=== PATIENT | female | born 1970 | race Two or more races ===

== ENCOUNTER 2023-02-02 15:57 | Inpatient (IN) ==
--- NOTE | 2023-02-02 17:24 | EKG ---
Test Reason : ischemia left leg Blood Pressure : */* mmHG Vent. Rate : 94 BPM Atrial Rate : 101 BPM P-R Int : * ms QRS Dur : 172 ms QT Int : 446 ms P-R-T Axes : * -62 93 degrees QTc Int : 557 ms Sinus tachycardia with complete heart block and Ventricular-paced rhythm Abnormal ECG Confirmed by Deejay Mcdonough ([id number]) on 02/05/2023 12:51:53 PM Referred By: Confirmed By: Deejay Mcdonough
[2023-02-02 17:53] VITALS: BMI 27.8
[2023-02-02 18:17] LABS: BASOPHILS % (AUTO) 0.5 % (0.2-1.0); EOSINOPHILS % (AUTO) 0.5 % (0.9-2.9); HEMATOCRIT 34.2 % (36.0-47.0); HEMOGLOBIN 11.8 g/dL (12.0-16.0); LYMPHOCYTES % (AUTO) 32.1 % (21.0-51.0); MEAN CORPUSCULAR HEMOGLOBIN 28.3 pg (27.0-34.0); MEAN CORPUSCULAR HGB CONC 34.5 g/dL (33.0-35.0); MEAN CORPUSCULAR VOLUME 82.2 fL (80.0-100.0); MONOCYTES # (AUTO) 0.4 x10^3/uL (0.3-0.8); MONOCYTES % (AUTO) 5.8 % (0.0-13.0); NEUTROPHILS # (AUTO) 3.9 x10^3/uL (2.2-4.8); NEUTROPHILS % (AUTO) 61.1 % (42.0-75.0); PLATELET COUNT 208 X10^3/uL (150.0-450.0); RED BLOOD COUNT 4.16 X10^6/uL (3.5-5.4); RED CELL DISTRIBUTION WIDTH 14.5 % (11.6-16.5); WHITE BLOOD COUNT 6.4 X10^3/uL (3.6-10.0)
[2023-02-02] MEDS ORDERED: HEPARIN SODIUM INJ 5000 UNITS IVP ONE (18:21)
[2023-02-02 18:31] LABS: ALANINE AMINOTRANSFERASE 35 Units/L (12-78); ALBUMIN 3.5 g/dL (3.4-5.0); ALKALINE PHOSPHATASE 146 Units/L (46-116); ASPARTATE AMINO TRANSFERASE 17 Units/L (15-37); BLOOD UREA NITROGEN 15 mg/dL (7-18); CALCIUM 8.9 mg/dL (8.5-10.1); CARBON DIOXIDE 28.2 mmol/L (21-32); CHLORIDE 101 mmol/L (98-107); COR NA(FOR HYPERGLY) 144 mmol/L (136-145); CREATININE 1.06 mg/dL (0.55-1.02); GLUCOSE 395 mg/dL (65-99); SODIUM 137 mmol/L (136-145); TOTAL PROTEIN 7.4 g/dL (6.4-8.2); eGFR NON BLACK RACES 58 (>60)
[2023-02-02] MEDS: HEPARIN SODIUM IN D5W 25,000 UNITS/500 ML BAG IV PRN (18:48)
[2023-02-02] MEDS: LR 1,000 ML IV 1,000 ML IV SCH (18:51)
[2023-02-02] MEDS: NORVASC TAB 5 MG PO SCH (21:00)
[2023-02-02] MEDS: AMARYL TAB 4 MG PO SCH (21:00)
[2023-02-02] MEDS: ELAVIL PO SCH (21:00)
[2023-02-02] MEDS: SNACK - Diabetic Appropriate PO SCH (21:01)
[2023-02-03] MEDS ORDERED: HEPARIN SODIUM INJ 5000 UNITS IVP ONE ×2 (00:46→11:00)
[2023-02-03] MEDS ORDERED: NS 100 ML IV 100 ML ONE (06:34)
[2023-02-03] MEDS ORDERED: OMNIPAQUE 350 mg/mL 50 mL BTL 50 ML ONE (06:34)
[2023-02-03] MEDS ORDERED: OMNIPAQUE 350 mg/mL 100 mL BTL 100 ML ONE (06:34)
[2023-02-03] MEDS: LR 1,000 ML IV 1,000 ML IV SCH ×2 (08:00→21:25)
--- NOTE | 2023-02-03 14:36 | CT ---
HISTORYischemia left legSTUDYCTA AORTA WITH RUNOFFCOMPARISONNoneTECHNIQUECTA of the abdomen and pelvis with bilateral lower extremity runoff obtained without and with IV contrast. 3D MIPS images obtained and reviewed. Dose reduction techniques including Automated Exposure Control (AEC) and adjustment of mA and kV were utilized.FINDINGSVisualized portions of the lower thorax demonstrate no acute process. Partially visualized pacer wires.No acute osseous abnormality. No acute soft tissue abnormality in either lower extremity.No evidence of aortic aneurysm or dissection. The celiac artery, SMA, bilateral renal arteries, and JEFF appear patent with multifocal atherosclerotic disease. The bilateral common, internal, and external iliac arteries appear patent with multifocal atherosclerotic disease.The right common femoral, superficial femoral, and deep femoral arteries are patent with multifocal atherosclerotic disease. The right anterior tibial artery appears patent to the right foot. The posterior tibial and peroneal artery on the right are difficult to evaluate due to degree of atherosclerotic calcification and may be occluded.The left common femoral, superficial femoral, and deep femoral arteries appear patent with multifocal atherosclerotic disease. The left popliteal artery is patent. The left anterior tibial and peroneal arteries appear patent to the foot. Occlusion of the left posterior tibial artery.The liver, gallbladder, spleen, pancreas, bilateral adrenal glands, and right kidney demonstrate no acute process. Possible striated left nephrogram.No evidence of bowel obstruction. The appendix is unremarkable. Moderate colonic stool.The bladder is unremarkable. No free air or fluid.IMPRESSIONPatent one-vessel runoff to the right foot and 2 vessel runoff to the left foot.No acute findingsElectronically signed by: WILLIAMS CHIN (Feb 03, 2023 14:35:20)
[2023-02-03] MEDS ORDERED: NovoLIN R (or HumuLIN R) SUBCUT PRN (16:22)
[2023-02-03] MEDS ORDERED: SNACK - Diabetic Appropriate PO SCH (20:00)
[2023-02-03] MEDS: SNACK - Diabetic Appropriate PO SCH (21:00)
[2023-02-03] MEDS: AMARYL TAB 4 MG PO SCH (21:23)
[2023-02-03] MEDS: NORVASC TAB 5 MG PO SCH (21:23)
[2023-02-03] MEDS: ELAVIL PO SCH (21:25)
--- NOTE | 2023-02-03 23:31 | NOTE.SOAP ---
Soap Note Note for Day of Date of Exam: 02/03/23 Subjective Data Subjective Data: Patient is stable on Heparin drip. Still complaining of numbness of the left leg. Left foot cool with rubor on the lateral aspect of the fifth metatarsal head .CT angiogram shows no obvious proximal disease with completely occluded left posterior tibial artery. The findings of the CT angiogram do not correspond with her history and physical exam, therefore we will plan onTable arteriogram and intervention as necessary. Objective Data Temperature: 97.4 F Pulse Rate: 73 Respiratory Rate: 15 Blood Pressure: 158/70 O2 Sat by Pulse Oximetry: 100 Objective Data: exam as above. PTT equals 64.3, creaTININE equals 1.06 Assessment Assessment: Critical ischemia left leg. CT angiogram does not correspond to history and physical exam Plan Plan: on table arteriogram left leg. Arterial intervention left leg as necessary
[2023-02-04] MEDS: HEPARIN SODIUM IN D5W 25,000 UNITS/500 ML BAG IV PRN (02:07)
[2023-02-04] MEDS ORDERED: MARCAINE 0.5% ONE (07:49)
[2023-02-04] MEDS ORDERED: HEPARIN SODIUM IN D5W 75,000 UNITS/1,500 ML BAG ONE (07:49)
[2023-02-04] MEDS ORDERED: NS 100 ML IV 100 ML ONE (08:16)
[2023-02-04] MEDS ORDERED: ANCEF VIAL 1 GRAM ONE (08:16)
[2023-02-04] MEDS ORDERED: NS 1,000 ML IV 1,000 ML ONE (08:16)
[2023-02-04] MEDS ORDERED: DIPRIVAN VIAL 40 ML ONE (08:21)
[2023-02-04] MEDS ORDERED: VERSED ONE (08:23)
[2023-02-04] MEDS ORDERED: HEPARIN SODIUM INJ 5000 UNITS ONE (08:34)
[2023-02-04] MEDS ORDERED: VISIPAQUE 100 ML ONE (08:36)
[2023-02-04] MEDS ORDERED: NORCO 5/325 MG TAB PO PRN ×2 (10:04→10:05)
--- NOTE | 2023-02-04 10:05 | OR.IMMED ---
IMMEDIATE POST-OP NOTE Immediate Post-Op Note Pre-Op Diagnosis: Critical ischemia left leg with rubor and tissue loss over the great toe Post-Op Diagnosis: same Procedure: diagnostic aorta gram, diagnostic arteriogram left leg ,angioplasty left anterior tibial artery complete occlusion distally Description of Procedure: dictated Surgeon/Cable Respooler: HARMONY Findings: very small aorta and iliac arteries. Small superficial femoral artery, completely occluded left peroneal and left posterior tibial arteries ,complete occlusion of the distal left anterior tibial artery with reconstruction and flow into the foot Estimated Blood Loss: 50 cc's Progress Notes: will return patient to the ICU. Discontinue Heparin drip. If tolerated diet will discharge home later today
[2023-02-04] MEDS: LR 1,000 ML IV 1,000 ML IV SCH ×2 (10:35→13:42)
--- NOTE | 2023-02-04 12:26 | DR.UPDATE ---
H&P UPDATE Review Yes Any changes to H&P?: No
[2023-02-04] MEDS ORDERED: ZOFRAN INJ 4 MG VIAL IVP PRN (13:23)
--- NOTE | 2023-02-04 14:42 | DR.OPNOTE ---
OP NOTE Pre-Op Diagnosis: Critical ischemia left leg with rubor and non-healing wounds to the left gr Post-Op Diagnosis: same Procedure Date Date Of Procedure: 02/04/23 Procedure: PROCEDURE: DIAGNOSTIC AORTOGRAM, DIAGNOSTIC ARTERIOGRAM LEFT LEG NARRATIVE : The patient was taken to the operative suite and place in the supine position. The right groin and entire left leg were prepped and draped in sterile fashion. The patient was given intravenous sedation supervised by myself. Time out for the procedure obtained. Ultrasound used to identify the right femoral artery and the skin overlying it infiltrated with 0.5% Marcaine. Ultrasound then used to guide puncture of the right femoral artery and a 0.012 inch guide wire was placed. Incision made over the guide wire at the skin edge with a # 11 knife blade and a micro sheath placed over the guide wire into the right femoral artery The small guidewire exchanged for a 0.035 inch Advantage glide wire and the micro sheath exchanged for a 5 Fr vascular sheath Patient given 5000 units of intravenous heparin. Omni catheter was placed over the guide wire into the aorta and diagnostic aortogram carried out with the power injector showing Very small aortic and iliac arteries but there appeared to be no significant obstruction . Omni catheter was used to steer the guide wire down the left common iliac artery to the distal left external iliac artery . Omni catheter was exchanged for a [place] catheter and sequential arteriograms carried out of the left lower extremity showing a completely occluded left peroneal and occluded left posterior tibial arteries with no reconstitution of either .The anterior tibial artery had a 5 mm area of complete total occlusion in the distal aspect with reconstitution of flow beyond this and into the foot. The 5 Fr sheath in the left groin exchanged for a 7 Fr destination sheath which was parked in Distal left superficial femoral artery . [place] catheter and the guide wire were used to traverse the arteries of the right leg ultimately ending in the left anterior tibial artery, beyond the obstruction and into the left foot. artery . This was selective catheterization. 0.035 inch wire removed and exchanged for a 0.014 inch wire. Over this wire we placed a [employer] [place] balloon , measuring 1mmx 150 mm and balloon dilated the complete obstruction if the distal left anterior tibial artery . At the completion of this a follow up arteriogram showed arterial flow through the entire left foot and most importantly into the left great toe . All wires and devices removed. The 7 Fr sheath was pulled back into the aorta and a 0.035 inch wire placed. The destination sheath exchanged for an Angioseal device used to close the puncture of the right femoral artery. .Dressing applied to the left groin. The patient taken to same day surgery in good condition. Type of Anesthesia: Local (0.5% marcaine ) Anesthesia Comment: plus MAC Findings: very small vessels. Normal aorta and normal iliac arteries, normal left superficial femoral artery and left popliteal artery ,completely occluded left peroneal artery and completely occluded left posterior tibial , complete total occlusion of 5 mm area of distal left anterior tibial artery with reconstitution and filling of the foot Type of Fluids Used:: Lactated Ringers Total Amount of Fluid Infused:: 750 cc EBL: < 50 cc Complications:: none Needle/Sponge Count:: correct Disposition/Condition: Pt. tolerated procedure without difficulty. Taken back to the ICU in stable condition.
[2023-02-04 15:39] VITALS: BP 159/71; PULSE 89; RESP 19; TEMP 98.2; O2SAT 97
[2023-02-04] MEDS ORDERED: KETAMINE 50 MG/5 ML-NACL SYRNG ONE (16:45)
[2023-02-04] MEDS ORDERED: XYLOCAINE 2 % (PLAIN) ONE (16:45)
--- NOTE | 2023-02-12 11:16 | W.DIS.FURT ---
Summary of Discharge Discharge Summary of Date Date of Exam: 02/05/23 Admission Date Date of Admission: 02/02/23 Admission Diagnosis Hospital Course: This 53 year old female with history of diabetes presented with complaints of a numb left leg. I could not palpate pulse nor hear any flow by ultrasound of the arteries of the left foot She was admitted 02/02/2023 and placed on a Heparin drip and CT angiogram carried out showing completely occluded right peroneal and right posterior tibial arteries without reconstitution. They did not comment on the Any significant disease of the left anterior tibial artery . Because the clinical findings were not consistent with the CT scan she was taking to the operating Suite on February 04 where on table arteriogram confirmed complete occlusion of both the right posterior tibial and right peroneal artery with reconstitution. The left anterior tibial artery was very small with complete occlusion of a 5 mm area distally with reconstitution of the foot. She underwent angioplasty of this left anterior tibial artery and is doing well. She will be discharged home on her usual medications plus aspirin 81 mg by mouth daily. I will follow her up in one week. Labs: Laboratory Last Values WBC 6.4 X10^3/uL (3.6-10.0) 02/02/23 17:55 RBC 4.16 X10^6/uL (3.5-5.4) 02/02/23 17:55 Hgb 11.8 g/dL (12.0-16.0) L 02/02/23 17:55 Hct 34.2 % (36.0-47.0) L 02/02/23 17:55 MCV 82.2 fL (80.0-100.0) 02/02/23 17:55 MCH 28.3 pg (27.0-34.0) 02/02/23 17:55 MCHC 34.5 g/dL (33.0-35.0) 02/02/23 17:55 RDW 14.5 % (11.6-16.5) 02/02/23 17:55 Plt Count 208 X10^3/uL (150.0-450.0) 02/02/23 17:55 MPV 9.0 fL (7.4-11.0) 02/02/23 17:55 Neut % (Auto) 61.1 % (42.0-75.0) 02/02/23 17:55 Lymph % (Auto) 32.1 % (21.0-51.0) 02/02/23 17:55 [place] % (Auto) 5.8 % (0.0-13.0) 02/02/23 17:55 Eos % (Auto) 0.5 % (0.9-2.9) L 02/02/23 17:55 Baso % (Auto) 0.5 % (0.2-1.0) 02/02/23 17:55 Neut # (Auto) 3.9 x10^3/uL (2.2-4.8) 02/02/23 17:55 Lymph # (Auto) 2.0 X10^3/uL (1.3-2.9) 02/02/23 17:55 [place] # (Auto) 0.4 x10^3/uL (0.3-0.8) 02/02/23 17:55 Eos # (Auto) 0.0 x10^3/uL (0.0-0.2) 02/02/23 17:55 Baso # (Auto) 0.0 X10^3/uL (0.0-0.1) 02/02/23 17:55 Absolute Nucleated RBC 0.0 /100WBC 02/02/23 17:55 PT 13.0 SECONDS (11.8-14.3) 02/02/23 17:55 INR Target Range - 02/02/23 17:55 INR 1.00 (0.8-1.3) 02/02/23 17:55 APTT > 293.0 SECONDS (22.9-36.5) H* 02/04/23 10:28 PTT Comment - 02/04/23 10:28 Sodium 137 mmol/L (136-145) 02/02/23 17:55 Corrected Sodium 144 mmol/L (136-145) 02/02/23 17:55 Potassium 4.0 mmol/L (3.5-5.1) 02/02/23 17:55 Chloride 101 mmol/L (98-107) 02/02/23 17:55 Carbon Dioxide 28.2 mmol/L (21-32) 02/02/23 17:55 BUN 15 mg/dL (7-18) 02/02/23 17:55 Creatinine 1.06 mg/dL (0.55-1.02) H 02/02/23 17:55 Est GFR (MDRD) Af Amer > 60 (>60) 02/02/23 17:55 Est GFR (MDRD) Non-Af 58 (>60) L 02/02/23 17:55 Glucose 395 mg/dL (65-99) H 02/02/23 17:55 POC Glucose (mg/dL) 141 mg/dL (65-99) H 02/04/23 11:30 Calcium 8.9 mg/dL (8.5-10.1) 02/02/23 17:55 Corrected Calcium TNP 02/02/23 17:55 Total Bilirubin 0.40 mg/dL (0.2-1.0) 02/02/23 17:55 AST 17 Units/L (15-37) 02/02/23 17:55 ALT 35 Units/L (12-78) 02/02/23 17:55 Alkaline Phosphatase 146 Units/L (46-116) H 02/02/23 17:55 Total Protein 7.4 g/dL (6.4-8.2) 02/02/23 17:55 Albumin 3.5 g/dL (3.4-5.0) 02/02/23 17:55 Globulin 3.9 g/dL (2.5-4.5) 02/02/23 17:55 Albumin/Globulin Ratio 0.9 Ratio (1.1-2.1) L 02/02/23 17:55 Reason For Visit: CRITICAL ISCHEMIA LEFT LEG Discharge Date Discharge Date: 02/05/23 Discharge Diagnosis All Active Problems (Updated 02/04/23 @ 15:34 by Santo Hawley) Atherosclerosis of [place] arteries of extremities with rest pain, left leg (Acute) Plan of Treatment: Continue with present treatment and follow up plan. Pt is to keep follow up appointment as instructed and take medications as ordered. Discharge Medications Discharge Medications: No Known Allergies Allergy (Verified 02/02/23 17:53) CONTINUE taking the following medications amitriptyline-chlordiazepoxide 25 mg-10 mg tablet 10 tab PO HS 02/02/23 [History] amlodipine 5 mg tablet 5 mg PO HS 02/02/23 [History] glimepiride 4 mg tablet 4 mg PO HS 02/02/23 [History] New Prescriptions aspirin 81 mg capsule 81 mg PO QDAY #30 caps 02/04/23 [Rx] Discharge Disposition Assessment: as above Discharge Plan Discharge Plan Hospital Course: This 53 year old female with history of diabetes presented with complaints of a numb left leg. I could not palpate pulse nor hear any flow by ultrasound of the arteries of the left foot She was admitted 02/02/2023 and placed on a Heparin drip and CT angiogram carried out showing completely occluded right peroneal and right posterior tibial arteries without reconstitution. They did not comment on the Any significant disease of the left anterior tibial artery . Because the clinical findings were not consistent with the CT scan she was taking to the operating Suite on February 04 where on table arteriogram confirmed complete occlusion of both the right posterior tibial and right peroneal artery with reconstitution. The left anterior tibial artery was very small with complete occlusion of a 5 mm area distally with reconstitution of the foot. She underwent angioplasty of this left anterior tibial artery and is doing well. She will be discharged home on her usual medications plus aspirin 81 mg by mouth daily. I will follow her up in one week. Patient Disposition: HOME, SELF-CARE Condition: Stable Health Concerns: Post Hospitalization: new medications and changes needed to prevent readmission or further decline. Pt educated and given instructions on all concerns. Care Plan Goals: Problem: Pain/Alteration in Comfort Goal: Improve/ Resolve Pain; Achieve Pain Tolerance Instructions: Take pain medications as prescribed. Contact your primary care provider if your pain is unrelieved or worsens. Follow up with primary care provider as directed. Plan of Treatment: Continue with present treatment and follow up plan. Pt is to keep follow up appointment as instructed and take medications as ordered. Assessment: as above Prescription drug monitoring program results: PDMP was not reviewed Prescriptions: New aspirin 81 mg capsule 81 mg PO QDAY MDD 1 Qty: 30 6RF Continued amlodipine 5 mg Tablet 5 mg PO HS amitriptyline-chlordiazepoxide 25-10 mg Tablet 10 tab PO HS glimepiride 4 mg Tablet 4 mg PO HS Follow ups/Referrals Follow ups/Referrals: MARCO ANTONIO PETERSON [Primary Care Provider] - (Follow up as needed.) Santo Hawley [STAFF PHYSICIAN] - 02/09/23 9:30 am Instructions Instructions: Coronary Angioplasty, Sutures, Elen, or Adhesive Wound Closure, Coronary Angiogram, Care After Stand Alone Forms: Excuse From Work or School, Post Hospital Follow Up Care
== END 2023-02-04 16:06 | disposition home or self-care (01) | DRG 254 ==
LOC: ICU 16:45
PROVIDERS: ADMIT Surgery; ATTEND Surgery
DX: E11.65 Type 2 diabetes mellitus with hyperglycemia; I70.222 Atherosclerosis of native arteries of extremities with rest pain, left leg; I10 Essential (primary) hypertension

== ENCOUNTER 2023-02-25 10:24 | Inpatient (IN) ==
[2023-02-25] MEDS ORDERED: MARCAINE 0.5% ONE (14:15)
[2023-02-25] MEDS ORDERED: HEPARIN SODIUM IN D5W 75,000 UNITS/1,500 ML BAG ONE (14:15)
[2023-02-25] MEDS ORDERED: NS 1,000 ML IV 1,000 ML ONE (14:24)
[2023-02-25] MEDS ORDERED: ANCEF VIAL 1 GRAM ONE (14:24)
[2023-02-25] MEDS ORDERED: NS 100 ML IV 100 ML ONE (14:25)
[2023-02-25] MEDS ORDERED: KETAMINE 50 MG/5 ML-NACL SYRNG ONE (14:42)
[2023-02-25] MEDS ORDERED: VERSED ONE (14:42)
[2023-02-25] MEDS ORDERED: HEPARIN SODIUM INJ 5000 UNITS ONE (14:42)
[2023-02-25] MEDS ORDERED: FENTANYL VIAL INJ 100 mcg ONE (14:42)
[2023-02-25] MEDS ORDERED: DIPRIVAN VIAL 20 ML ONE (14:42)
[2023-02-25] MEDS ORDERED: PROTAMINE SULFATE 50 MG VIAL ONE (14:43)
--- NOTE | 2023-02-25 15:08 | DR.H&P ---
H&P History & Physical for Day of: H&P Date: 02/25/23 Chief Complaint Chief Complaint: painful, cold right foot Allergies Allergies Allergy/AdvReac Type Severity Reaction Status Date / Time No Known Allergies Allergy Verified 02/25/23 11:21 History of Present Illness History of Present Illness: 53 year old female who is seen by me originally in Late January of this year for an ischemic left leg with rubor. On table arteriogram showed completely occluded left peroneal and left posterior tibial arteries with significant stenosis of the takeoff of the left anterior tibial artery which was ballooned open. The left leg did improve but she still has some pain. Presented today to the emergency room in [place], [place] complaining of severe pain in the right leg. Ultrasound studies and CT angiogram consistent with occluded right anterior and posterior tibial arteries. Past Medical History Past Medical History: Diabetes and Hypertension Past Surgical History Surgical History: Unknown (none) Family History Family Medical History: Diabetes Mellitus and Hypertension Social History Does any household member use tobacco: No Alcohol Use: None Drug Use: None Medications Home Medications: Home Medications Medication Instructions Recorded Confirmed Type amitriptyline-chlordiazepoxide 25 10 tab PO HS 02/02/23 02/25/23 History mg-10 mg tablet amlodipine 5 mg tablet 5 mg PO HS 02/02/23 02/25/23 History glimepiride 4 mg tablet 4 mg PO HS 02/02/23 02/25/23 History atorvastatin 20 mg tablet 20 mg PO DAILY 02/25/23 02/25/23 History metformin 500 mg 24 hr 100 mg PO BID 02/25/23 02/25/23 History tablet,extended release Labs Labs: Laboratory POC Glucose (mg/dL) 160 mg/dL (65-99) H 02/25/23 14:37 labs from [facility] unremarkable, Cr= 0.9, WBC =5.9, Hgb= 12.3, Eor=187, K= 4.4 Review of Systems Constitutional: See HPI Eyes: No Symptoms Reported ENT: No Symptoms Reported Respiratory: No Symptoms Reported Cardiovascular: No Symptoms Reported Gastrointestinal: No Symptoms Reported Genitourinary: No Symptoms Reported Musculoskeletal: No Symptoms Reported Skin: No Symptoms Reported Neurological: No Symptoms Reported Physical Exam Vital Signs: Vital Signs Pulse Rate 60 Pulse Rate 65 Pulse Rate 60 Respiratory Rate 8 Respiratory Rate 15 Respiratory Rate 11 Blood Pressure 190/79 Blood Pressure 157/68 O2 Sat by Pulse Oximetry 100 O2 Sat by Pulse Oximetry 100 O2 Sat by Pulse Oximetry 99 Oriented: Normal, Time, Person and Place Eyes: Normal Ear: Normal Nose: Normal Throat: Normal Respiratory: Clear Throughout Cardiovascular: Normal : Normal Auscultation: Bowel Sounds: Normal Palpation: Normal Tenderness: Normal Skin: Normal Musculoskeletal: Normal Psychiatric: Normal Mood Description: Calm Affect: Normal Speech Pattern: Clear Assessment/Plan (1) Atherosclerosis of [place] arteries of extremities with rest pain, right leg: Status: Acute Plan: Will plan arteriogram of the right leg with possible arterial intervention of the occluded right anterior and posterior tibial arteries . (2) Essential (primary) hypertension: Status: Acute Plan: begin home medications (3) Type 2 diabetes mellitus without complications: Status: Acute Plan: q 6 hr blood sugars and cover with sliding scale insulin
[2023-02-25] MEDS ORDERED: VISIPAQUE 100 ML ONE (15:10)
[2023-02-25] MEDS ORDERED: EPHEDRINE SULFATE INJ ONE (15:22)
[2023-02-25] MEDS ORDERED: TORADOL 30 MG VIAL ONE (15:34)
[2023-02-25] MEDS ORDERED: VISIPAQUE 50 ML ONE (16:01)
[2023-02-25] MEDS ORDERED: NITROGLYCERIN IV PREMIX 50 MG 50 MG/250 ML BAG ONE (16:01)
[2023-02-25] MEDS ORDERED: ACTIVASE CATHFLO ONE ×2 (16:12→16:13)
[2023-02-25] MEDS ORDERED: NS 250 ML IV 250 ML IV ONE (16:16)
[2023-02-25] MEDS ORDERED: HEPARIN SODIUM IN D5W 25,000 UNITS/500 ML BAG ONE (16:19)
[2023-02-25] MEDS ORDERED: NS 500 ML IV 500 ML IV ONE (16:20)
[2023-02-25] MEDS ORDERED: NORMODYNE INJ 20 MG VIAL IVP ONE (16:55)
[2023-02-25] MEDS ORDERED: DILAUDID INJ ONE (16:55)
[2023-02-25] MEDS: DILAUDID INJ IVP PRN ×3 (16:55→21:51)
[2023-02-25] MEDS ORDERED: NORMODYNE INJ 20 MG VIAL ONE (16:55)
--- NOTE | 2023-02-25 17:19 | OR.IMMED ---
IMMEDIATE POST-OP NOTE Immediate Post-Op Note Pre-Op Diagnosis: Critical ischemia right foot Post-Op Diagnosis: same , occluded right peroneal and posterior tibial arteries with no reconstitution, diseased right anterior tibial artery middle and distal thirds. Significant microvasculature of right foot and calf. Diffuse disease of the right SFA, This may represent clot. Procedure: Diagnostic aortogram, diagnostic arteriogram right leg angioplasty right anterior tibial artery, placement of EKOS thrombolytic catheter for catheter directed thrombolysis of the Right Foot & Leg overnight Surgeon/Landcare Officer: Chandan Findings: as above Estimated Blood Loss: 100 cc Complications: none Progress Notes: return to the ICU, Begin home medications. Resume diet. O vernight thrombolysis. Evaluation and possible return to the operating room tomorrow for repeat arteriograms
[2023-02-25] MEDS ORDERED: HEPARIN SODIUM IN D5W 25,000 UNITS/500 ML BAG INTRACATH PRN (17:22)
[2023-02-25] MEDS ORDERED: ACTIVASE CATHFLO 12 MG in NS 250 ML IV 228 ML INTRACATH ONE ×4 (17:22)
[2023-02-25 17:46] LABS: BASOPHILS % (AUTO) 0.2 % (0.2-1.0); EOSINOPHILS # (AUTO) 0.1 x10^3/uL (0.0-0.2); EOSINOPHILS % (AUTO) 1.5 % (0.9-2.9); HEMATOCRIT 34.8 % (36.0-47.0); HEMOGLOBIN 12.1 g/dL (12.0-16.0); LYMPHOCYTES # (AUTO) 2.6 X10^3/uL (1.3-2.9); LYMPHOCYTES % (AUTO) 31.4 % (21.0-51.0); MEAN CORPUSCULAR HEMOGLOBIN 28.5 pg (27.0-34.0); MEAN CORPUSCULAR HGB CONC 34.6 g/dL (33.0-35.0); MEAN CORPUSCULAR VOLUME 82.5 fL (80.0-100.0); MEAN PLATELET VOLUME 8.6 fL (7.4-11.0); MONOCYTES # (AUTO) 0.5 x10^3/uL (0.3-0.8); MONOCYTES % (AUTO) 6.4 % (0.0-13.0); NEUTROPHILS # (AUTO) 5.1 x10^3/uL (2.2-4.8); NEUTROPHILS % (AUTO) 60.5 % (42.0-75.0); PLATELET COUNT 226 X10^3/uL (150.0-450.0); RED BLOOD COUNT 4.22 X10^6/uL (3.5-5.4); WHITE BLOOD COUNT 8.4 X10^3/uL (3.6-10.0)
[2023-02-25] MEDS ORDERED: NS 500 ML IV 500 ML IV SCH ×2 (18:00)
[2023-02-25] MEDS: LR 1,000 ML IV 1,000 ML IV SCH (18:14)
[2023-02-25] MEDS ORDERED: NORMODYNE INJ 20 MG VIAL IVP PRN (21:16)
[2023-02-25] MEDS: PHENERGAN TAB 25 MG PO PRN (21:44)
[2023-02-25] MEDS: ELAVIL PO SCH (21:45)
[2023-02-25] MEDS ORDERED: NORVASC TAB 5 MG PO ONE (22:16)
[2023-02-25] MEDS: NovoLIN R (or HumuLIN R) SC PRN (22:24)
[2023-02-25 23:48] LABS: BASOPHILS % (AUTO) 0.2 % (0.2-1.0); EOSINOPHILS % (AUTO) 0.1 % (0.9-2.9); HEMATOCRIT 37.3 % (36.0-47.0); HEMOGLOBIN 12.8 g/dL (12.0-16.0); LYMPHOCYTES # (AUTO) 1.2 X10^3/uL (1.3-2.9); LYMPHOCYTES % (AUTO) 10.4 % (21.0-51.0); MEAN CORPUSCULAR HEMOGLOBIN 28.4 pg (27.0-34.0); MEAN CORPUSCULAR HGB CONC 34.4 g/dL (33.0-35.0); MEAN CORPUSCULAR VOLUME 82.6 fL (80.0-100.0); MEAN PLATELET VOLUME 8.7 fL (7.4-11.0); MONOCYTES # (AUTO) 0.3 x10^3/uL (0.3-0.8); MONOCYTES % (AUTO) 2.3 % (0.0-13.0); NEUTROPHILS # (AUTO) 10.2 x10^3/uL (2.2-4.8); PLATELET COUNT 268 X10^3/uL (150.0-450.0); RED BLOOD COUNT 4.52 X10^6/uL (3.5-5.4); WHITE BLOOD COUNT 11.7 X10^3/uL (3.6-10.0)
[2023-02-25] MEDS ORDERED: CATAPRES TAB 0.2 MG PO ONE (23:58)
[2023-02-26] MEDS: DILAUDID INJ IVP PRN ×5 (01:10→23:00)
[2023-02-26] MEDS: NovoLIN R (or HumuLIN R) SC PRN ×3 (05:27→16:30)
[2023-02-26 05:42] LABS: BASOPHILS # (AUTO) 0.1 X10^3/uL (0.0-0.1); BASOPHILS % (AUTO) 0.6 % (0.2-1.0); HEMATOCRIT 36.5 % (36.0-47.0); HEMOGLOBIN 12.6 g/dL (12.0-16.0); LYMPHOCYTES # (AUTO) 1.5 X10^3/uL (1.3-2.9); LYMPHOCYTES % (AUTO) 12.1 % (21.0-51.0); MEAN CORPUSCULAR HEMOGLOBIN 28.4 pg (27.0-34.0); MEAN CORPUSCULAR HGB CONC 34.6 g/dL (33.0-35.0); MEAN PLATELET VOLUME 8.6 fL (7.4-11.0); MONOCYTES # (AUTO) 0.3 x10^3/uL (0.3-0.8); MONOCYTES % (AUTO) 2.5 % (0.0-13.0); NEUTROPHILS # (AUTO) 10.5 x10^3/uL (2.2-4.8); NEUTROPHILS % (AUTO) 84.8 % (42.0-75.0); PLATELET COUNT 281 X10^3/uL (150.0-450.0); RED BLOOD COUNT 4.45 X10^6/uL (3.5-5.4); RED CELL DISTRIBUTION WIDTH 14.5 % (11.6-16.5); WHITE BLOOD COUNT 12.4 X10^3/uL (3.6-10.0)
[2023-02-26] MEDS: LR 1,000 ML IV 1,000 ML IV SCH ×2 (07:00→22:50)
[2023-02-26] MEDS: ZOFRAN INJ 4 MG VIAL IVP PRN (07:39)
[2023-02-26] MEDS: LIPITOR TAB 20 MG PO SCH (09:29)
[2023-02-26] MEDS: NORVASC TAB 5 MG PO SCH (09:52)
[2023-02-26] MEDS: PHENERGAN TAB 25 MG PO PRN (09:52)
[2023-02-26 11:52] LABS: BASOPHILS % (AUTO) 0.3 % (0.2-1.0); HEMATOCRIT 35.4 % (36.0-47.0); HEMOGLOBIN 12.4 g/dL (12.0-16.0); LYMPHOCYTES # (AUTO) 1.4 X10^3/uL (1.3-2.9); LYMPHOCYTES % (AUTO) 12.3 % (21.0-51.0); MEAN CORPUSCULAR HEMOGLOBIN 28.6 pg (27.0-34.0); MEAN CORPUSCULAR VOLUME 81.6 fL (80.0-100.0); MEAN PLATELET VOLUME 8.5 fL (7.4-11.0); MONOCYTES # (AUTO) 0.7 x10^3/uL (0.3-0.8); NEUTROPHILS % (AUTO) 81.4 % (42.0-75.0); PLATELET COUNT 242 X10^3/uL (150.0-450.0); RED BLOOD COUNT 4.34 X10^6/uL (3.5-5.4); RED CELL DISTRIBUTION WIDTH 13.9 % (11.6-16.5); WHITE BLOOD COUNT 11.1 X10^3/uL (3.6-10.0)
[2023-02-26] MEDS ORDERED: KETAMINE 50 MG/5 ML-NACL SYRNG ONE (12:32)
[2023-02-26] MEDS ORDERED: FENTANYL VIAL INJ 100 mcg ONE (12:32)
[2023-02-26] MEDS ORDERED: VERSED ONE (12:32)
[2023-02-26] MEDS ORDERED: DIPRIVAN VIAL 20 ML ONE (12:32)
[2023-02-26] MEDS ORDERED: HEPARIN SODIUM IN D5W 75,000 UNITS/1,500 ML BAG ONE (12:48)
[2023-02-26] MEDS ORDERED: ANCEF VIAL 1 GRAM ONE (13:00)
[2023-02-26] MEDS ORDERED: NS 100 ML IV 100 ML ONE (13:01)
[2023-02-26] MEDS ORDERED: VISIPAQUE 100 ML ONE (13:22)
[2023-02-26] MEDS: HEPARIN SODIUM IN D5W 25,000 UNITS/500 ML BAG IV PRN (14:00)
--- NOTE | 2023-02-26 14:26 | OR.IMMED ---
IMMEDIATE POST-OP NOTE Immediate Post-Op Note Pre-Op Diagnosis: Critical ischemia right leg Post-Op Diagnosis: same Procedure: removal of EKOS catheter and on table arterigram . The right anterior tibial artery remains open with micro vasculature filling of the foot but no other named vessels filling below the knee. Right foot cool. Left foot cool with some mottling Surgeon/Armature Coil Winder: Angella Estimated Blood Loss: < 25 cc Complications: none Progress Notes: Continue Heparin drip. Return to ICU . Begin diet, pain control. May need transfer to another facility.
[2023-02-26 17:47] LABS: BASOPHILS % (AUTO) 0.3 % (0.2-1.0); HEMATOCRIT 32.8 % (36.0-47.0); HEMOGLOBIN 11.4 g/dL (12.0-16.0); LYMPHOCYTES # (AUTO) 2.2 X10^3/uL (1.3-2.9); MEAN CORPUSCULAR HEMOGLOBIN 28.4 pg (27.0-34.0); MEAN CORPUSCULAR HGB CONC 34.8 g/dL (33.0-35.0); MEAN CORPUSCULAR VOLUME 81.6 fL (80.0-100.0); MEAN PLATELET VOLUME 7.9 fL (7.4-11.0); NEUTROPHILS # (AUTO) 7.8 x10^3/uL (2.2-4.8); NEUTROPHILS % (AUTO) 70.7 % (42.0-75.0); PLATELET COUNT 235 X10^3/uL (150.0-450.0); RED BLOOD COUNT 4.02 X10^6/uL (3.5-5.4); RED CELL DISTRIBUTION WIDTH 13.9 % (11.6-16.5)
[2023-02-26] MEDS ORDERED: HEPARIN SODIUM INJ 5000 UNITS IVP ONE (18:32)
[2023-02-26] MEDS: ELAVIL PO SCH (21:35)
[2023-02-26 23:47] LABS: BASOPHILS # (AUTO) 0.1 X10^3/uL (0.0-0.1); BASOPHILS % (AUTO) 0.6 % (0.2-1.0); EOSINOPHILS # (AUTO) 0.1 x10^3/uL (0.0-0.2); EOSINOPHILS % (AUTO) 0.5 % (0.9-2.9); HEMATOCRIT 31.3 % (36.0-47.0); LYMPHOCYTES # (AUTO) 3.1 X10^3/uL (1.3-2.9); LYMPHOCYTES % (AUTO) 30.1 % (21.0-51.0); MEAN CORPUSCULAR HEMOGLOBIN 28.9 pg (27.0-34.0); MEAN CORPUSCULAR HGB CONC 35.1 g/dL (33.0-35.0); MEAN CORPUSCULAR VOLUME 82.5 fL (80.0-100.0); MEAN PLATELET VOLUME 8.3 fL (7.4-11.0); MONOCYTES # (AUTO) 0.9 x10^3/uL (0.3-0.8); MONOCYTES % (AUTO) 8.6 % (0.0-13.0); NEUTROPHILS # (AUTO) 6.2 x10^3/uL (2.2-4.8); NEUTROPHILS % (AUTO) 60.2 % (42.0-75.0); PLATELET COUNT 215 X10^3/uL (150.0-450.0); RED CELL DISTRIBUTION WIDTH 13.7 % (11.6-16.5); WHITE BLOOD COUNT 10.3 X10^3/uL (3.6-10.0)
[2023-02-27] MEDS ORDERED: HEPARIN SODIUM INJ 5000 UNITS IVP ONE ×3 (00:19→19:33)
[2023-02-27] MEDS: DILAUDID INJ IVP PRN ×3 (04:25→19:16)
[2023-02-27] MEDS: NovoLIN R (or HumuLIN R) SC PRN ×4 (05:36→21:03)
[2023-02-27 07:18] LABS: BASOPHILS # (AUTO) 0.1 X10^3/uL (0.0-0.1); BASOPHILS % (AUTO) 0.7 % (0.2-1.0); EOSINOPHILS % (AUTO) 0.5 % (0.9-2.9); HEMATOCRIT 33.6 % (36.0-47.0); HEMOGLOBIN 11.6 g/dL (12.0-16.0); LYMPHOCYTES # (AUTO) 2.4 X10^3/uL (1.3-2.9); MEAN CORPUSCULAR HEMOGLOBIN 28.6 pg (27.0-34.0); MEAN CORPUSCULAR HGB CONC 34.6 g/dL (33.0-35.0); MEAN CORPUSCULAR VOLUME 82.5 fL (80.0-100.0); MEAN PLATELET VOLUME 8.5 fL (7.4-11.0); MONOCYTES # (AUTO) 0.7 x10^3/uL (0.3-0.8); MONOCYTES % (AUTO) 7.7 % (0.0-13.0); NEUTROPHILS # (AUTO) 6.1 x10^3/uL (2.2-4.8); NEUTROPHILS % (AUTO) 65.1 % (42.0-75.0); PLATELET COUNT 193 X10^3/uL (150.0-450.0); RED BLOOD COUNT 4.07 X10^6/uL (3.5-5.4); RED CELL DISTRIBUTION WIDTH 13.8 % (11.6-16.5); WHITE BLOOD COUNT 9.3 X10^3/uL (3.6-10.0)
[2023-02-27] MEDS: ZOFRAN INJ 4 MG VIAL IVP PRN (07:20)
[2023-02-27] MEDS: LIPITOR TAB 20 MG PO SCH (08:29)
[2023-02-27] MEDS: NORVASC TAB 5 MG PO SCH (08:29)
[2023-02-27] MEDS: LR 1,000 ML IV 1,000 ML IV SCH ×2 (09:25→19:02)
[2023-02-27] MEDS: HEPARIN SODIUM IN D5W 25,000 UNITS/500 ML BAG IV PRN (12:52)
[2023-02-27] MEDS ORDERED: MILK OF MAGNESIA PO PRN (15:59)
[2023-02-27] MEDS ORDERED: COLACE CAP 100 MG PO PRN (15:59)
[2023-02-27] MEDS: MILK OF MAGNESIA PO SCH (17:36)
[2023-02-27] MEDS: COLACE CAP 100 MG PO SCH (17:36)
--- NOTE | 2023-02-27 18:59 | NOTE.SOAP ---
Soap Note Note for Day of Date of Exam: 02/27/23 Subjective Data Subjective Data: Left foot cool, right foot warm, less pain, wiggles toes bilaterally. Postive doppler signal right AT artery. Objective Data Temperature: 99.4 F Pulse Rate: 102 Respiratory Rate: 18 Blood Pressure: 156/72 O2 Sat by Pulse Oximetry: 98 Objective Data: As above .Less pain, Cr=1.06, PTT= 53.3 Assessment Assessment: Critical ischemia both feet , R/>L Plan Plan: Continue heparin drip.
[2023-02-27] MEDS: SNACK - Diabetic Appropriate PO SCH (20:15)
[2023-02-27] MEDS ORDERED: GLUCOPHAGE XR 24-HR PO SCH (21:00)
[2023-02-27] MEDS: AMARYL TAB 4 MG PO SCH (21:01)
[2023-02-27] MEDS: ELAVIL PO SCH (21:01)
[2023-02-27] MEDS: GLUCOPHAGE XR 24-HR PO SCH (21:01)
[2023-02-28] MEDS: DILAUDID INJ IVP PRN ×7 (02:05→21:51)
[2023-02-28] MEDS: MILK OF MAGNESIA PO SCH ×2 (05:39→16:46)
[2023-02-28] MEDS: COLACE CAP 100 MG PO SCH ×2 (05:39→16:35)
[2023-02-28] MEDS: NovoLIN R (or HumuLIN R) SC PRN ×3 (05:42→17:44)
[2023-02-28 06:08] LABS: HEMOGLOBIN 11.4 g/dL (12.0-16.0); LYMPHOCYTES # (AUTO) 2.2 X10^3/uL (1.3-2.9); MEAN PLATELET VOLUME 8.9 fL (7.4-11.0); RED CELL DISTRIBUTION WIDTH 13.8 % (11.6-16.5)
[2023-02-28 06:16] LABS: BASOPHILS % (AUTO) 0.4 % (0.2-1.0); EOSINOPHILS # (AUTO) 0.1 x10^3/uL (0.0-0.2); EOSINOPHILS % (AUTO) 1.5 % (0.9-2.9); HEMATOCRIT 32.5 % (36.0-47.0); LYMPHOCYTES % (AUTO) 23.4 % (21.0-51.0); MEAN CORPUSCULAR HEMOGLOBIN 28.9 pg (27.0-34.0); MEAN CORPUSCULAR HGB CONC 35.1 g/dL (33.0-35.0); MEAN CORPUSCULAR VOLUME 82.5 fL (80.0-100.0); MONOCYTES # (AUTO) 0.9 x10^3/uL (0.3-0.8); MONOCYTES % (AUTO) 9.6 % (0.0-13.0); NEUTROPHILS % (AUTO) 65.1 % (42.0-75.0); PLATELET COUNT 191 X10^3/uL (150.0-450.0); RED BLOOD COUNT 3.94 X10^6/uL (3.5-5.4); WHITE BLOOD COUNT 9.2 X10^3/uL (3.6-10.0)
[2023-02-28] MEDS: LR 1,000 ML IV 1,000 ML IV SCH ×3 (08:03→21:51)
[2023-02-28] MEDS: GLUCOPHAGE XR 24-HR PO SCH ×2 (08:47→20:49)
[2023-02-28] MEDS: NORVASC TAB 5 MG PO SCH (08:48)
[2023-02-28] MEDS: LIPITOR TAB 20 MG PO SCH (08:48)
[2023-02-28] MEDS ORDERED: HEPARIN SODIUM INJ 5000 UNITS ONE (09:24)
[2023-02-28] MEDS ORDERED: HEPARIN SODIUM INJ 5000 UNITS IVP ONE (09:31)
[2023-02-28 12:04] LABS: BASOPHILS # (AUTO) 0.1 X10^3/uL (0.0-0.1); BASOPHILS % (AUTO) 0.7 % (0.2-1.0); EOSINOPHILS # (AUTO) 0.1 x10^3/uL (0.0-0.2); EOSINOPHILS % (AUTO) 1.6 % (0.9-2.9); HEMATOCRIT 33.2 % (36.0-47.0); HEMOGLOBIN 11.3 g/dL (12.0-16.0); LYMPHOCYTES # (AUTO) 1.9 X10^3/uL (1.3-2.9); LYMPHOCYTES % (AUTO) 23.3 % (21.0-51.0); MEAN CORPUSCULAR HEMOGLOBIN 28.1 pg (27.0-34.0); MEAN CORPUSCULAR HGB CONC 34.1 g/dL (33.0-35.0); MEAN CORPUSCULAR VOLUME 82.3 fL (80.0-100.0); MEAN PLATELET VOLUME 8.4 fL (7.4-11.0); MONOCYTES # (AUTO) 0.7 x10^3/uL (0.3-0.8); MONOCYTES % (AUTO) 8.2 % (0.0-13.0); NEUTROPHILS # (AUTO) 5.5 x10^3/uL (2.2-4.8); NEUTROPHILS % (AUTO) 66.2 % (42.0-75.0); PLATELET COUNT 187 X10^3/uL (150.0-450.0); RED BLOOD COUNT 4.03 X10^6/uL (3.5-5.4); RED CELL DISTRIBUTION WIDTH 13.5 % (11.6-16.5); WHITE BLOOD COUNT 8.3 X10^3/uL (3.6-10.0)
[2023-02-28 13:12] VITALS: BMI 26.9
[2023-02-28] MEDS: HEPARIN SODIUM IN D5W 25,000 UNITS/500 ML BAG IV PRN (15:04)
[2023-02-28 17:54] LABS: BASOPHILS # (AUTO) 0.1 X10^3/uL (0.0-0.1); BASOPHILS % (AUTO) 0.7 % (0.2-1.0); EOSINOPHILS # (AUTO) 0.1 x10^3/uL (0.0-0.2); EOSINOPHILS % (AUTO) 1.3 % (0.9-2.9); HEMATOCRIT 32.2 % (36.0-47.0); HEMOGLOBIN 11.1 g/dL (12.0-16.0); LYMPHOCYTES # (AUTO) 2.2 X10^3/uL (1.3-2.9); LYMPHOCYTES % (AUTO) 23.7 % (21.0-51.0); MEAN CORPUSCULAR HEMOGLOBIN 28.6 pg (27.0-34.0); MEAN CORPUSCULAR HGB CONC 34.6 g/dL (33.0-35.0); MEAN CORPUSCULAR VOLUME 82.6 fL (80.0-100.0); MEAN PLATELET VOLUME 8.2 fL (7.4-11.0); MONOCYTES # (AUTO) 0.8 x10^3/uL (0.3-0.8); MONOCYTES % (AUTO) 8.4 % (0.0-13.0); NEUTROPHILS % (AUTO) 65.9 % (42.0-75.0); PLATELET COUNT 189 X10^3/uL (150.0-450.0); RED CELL DISTRIBUTION WIDTH 13.8 % (11.6-16.5); WHITE BLOOD COUNT 9.1 X10^3/uL (3.6-10.0)
[2023-02-28] MEDS ORDERED: SNACK - Diabetic Appropriate PO SCH (20:00)
[2023-02-28] MEDS: SNACK - Diabetic Appropriate PO SCH (20:48)
[2023-02-28] MEDS: ELAVIL PO SCH (20:49)
[2023-02-28] MEDS: AMARYL TAB 4 MG PO SCH (20:49)
--- NOTE | 2023-02-28 21:47 | DR.OPNOTE ---
OP NOTE Pre-Op Diagnosis: critical ischemia right leg. Post-Op Diagnosis: same Procedure Date Date Of Procedure: 02/25/23 Procedure: PROCEDURE: DIAGNOSTIC AORTOGRAM, DIAGNOSTIC ARTERIOGRAM RIGHT LEG NARRATIVE : The patient was taken to the operative suite and placed in the supine position. The left groin and entire right leg were prepped and draped in sterile fashion. The patient was given intravenous sedation supervised by myself. Time out for the procedure obtained. Ultrasound used to identify the left femoral artery and the skin overlying it infiltrated with 0.5% Marcaine. Ultrasound then used to guide puncture of the left femoral artery and a 0.012 inch guide wire was placed. Incision made over the guide wire at the skin edge with a # 11 knife blade and a micro sheath placed over the guide wire into the left femoral artery The small guidewire exchanged for a 0.035 inch Advantage glide wire and the micro sheath exchanged for a 5 Fr vascular sheath Patient given 5000 units of intravenous heparin. Omni catheter was placed over the guide wire into the aorta and diagnostic aortogram carried out with the power injector showing normal aorta and iliac arteries , albeit all are small. Omni catheter was used to steer the guide wire down the right common iliac artery to the distal right external iliac artery . Omni catheter was exchanged for a [place] catheter and sequential arteriograms carried out of the right lower extremity showing ,mild, diffuse right superficial femoral artery disease with no obvious significant stenosis, patent right popliteal and tibial peroneal trunk arteries . The right peroneal and right posterior tibial arteries are completely occluded with no reconstitution. The right anterior tibial artery has multiple areas of occlusion proximally and distally. The 5 Fr sheath in the left groin was exchanged for a 7 Fr destination sheath which was parked in distal right external iliac artery. [place] catheter and the guide wire were used to traverse the arteries of the right leg ultimately ending in the right anterior tibial artery . This was selective catheterization. Wire and [place] catheter taken all the way to the right foot . 0.035 inch wire removed and exchanged for a 0.014 inch wire. Placed a 2mmx 220 mm angioplasty balloon and dilated the entire length of the right anterior tibial artery . Follow up arteriogram showed small right anterior tibial artery. Artery dilated again with a 2.5 mm x 220 mm angioplasty balloon. Repeat arteriogram showed patent right anterior tibial artery and multiple small vessels and micro vessels of the right foot. There was no filling of the right peroneal or posterior tibial arteries . Over the wire we placed the EKOS catheter , removed the wire and placed the inner EKOS catheter. Patient bolused with 2 mg of IV TPA . TPA drip started at 1mg/ hour, coolant at 30 cc/ hr and heparin at 500 units / hr. Destination sheath in the left groin secured to to the skin with a 2-0 silk suture . Dressing applied to the left groin. The patient taken to same day surgery in good condition for overnight infusion of TPA with the EKOS catheter. Type of Anesthesia: Local (0.5% Marcaine ) Anesthesia Comment: plus MAC Findings: Mild disease right SFA, occluded right peroneal and right posterior tibial arteries with no reconstitution. Severe disease right mid and distal a nterior tibial artery Type of Fluids Used:: Lactated Ringers Total Amount of Fluid Infused:: 550 cc Urine output: 700 cc EBL: 100 cc Complications:: none Needle/Sponge Count:: correct Disposition/Condition: Pt. tolerated procedure without difficulty. Taken to ICU in stable condition.
--- NOTE | 2023-02-28 22:49 | NOTE.SOAP ---
Soap Note Note for Day of Date of Exam: 02/28/23 Subjective Data Subjective Data: Complicated case. 53 year old female with diabetes who had arterial intervention of the left anterior tibial artery several weeks ago as the only patetn vessel to her ankle with no reconstitution of the posterior tibial or peroneal arteries . Pain improved of the left leg but the left leg remains cool. Presented this past week with identical complaints of rest pain of the right leg. Arteriogram showed identical findings of a disease anterior tibial artery with occluded posterior tibial and peroneal arteries on the right side. Less pain in the right leg. Objective Data Temperature: 98.7 F Pulse Rate: 72 Respiratory Rate: 12 Blood Pressure: 163/71 O2 Sat by Pulse Oximetry: 99 Objective Data: Left foot cool. what's this Left anterior tibial doppler signal monophasic , right anterior tibial artery with biphasic signal. Redness of right great and 2nd to consistent with angiosome ischemia. 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 Plan Plan: Continue heparin drip.
[2023-03-01 00:01] LABS: BASOPHILS % (AUTO) 0.5 % (0.2-1.0); EOSINOPHILS # (AUTO) 0.1 x10^3/uL (0.0-0.2); EOSINOPHILS % (AUTO) 1.5 % (0.9-2.9); HEMATOCRIT 30.4 % (36.0-47.0); HEMOGLOBIN 10.8 g/dL (12.0-16.0); LYMPHOCYTES # (AUTO) 2.4 X10^3/uL (1.3-2.9); LYMPHOCYTES % (AUTO) 27.5 % (21.0-51.0); MEAN CORPUSCULAR HGB CONC 35.4 g/dL (33.0-35.0); MEAN CORPUSCULAR VOLUME 81.9 fL (80.0-100.0); MEAN PLATELET VOLUME 8.6 fL (7.4-11.0); MONOCYTES # (AUTO) 0.8 x10^3/uL (0.3-0.8); MONOCYTES % (AUTO) 8.8 % (0.0-13.0); NEUTROPHILS # (AUTO) 5.3 x10^3/uL (2.2-4.8); NEUTROPHILS % (AUTO) 61.7 % (42.0-75.0); PLATELET COUNT 189 X10^3/uL (150.0-450.0); RED BLOOD COUNT 3.71 X10^6/uL (3.5-5.4); RED CELL DISTRIBUTION WIDTH 13.6 % (11.6-16.5); WHITE BLOOD COUNT 8.6 X10^3/uL (3.6-10.0)
[2023-03-01] MEDS: DILAUDID INJ IVP PRN ×7 (00:14→21:35)
[2023-03-01] MEDS: LR 1,000 ML IV 1,000 ML IV SCH ×2 (01:20→12:02)
[2023-03-01] MEDS: MILK OF MAGNESIA PO SCH ×2 (04:42→20:07)
[2023-03-01] MEDS: COLACE CAP 100 MG PO SCH ×2 (04:42→20:06)
[2023-03-01 05:44] LABS: BASOPHILS # (AUTO) 0.1 X10^3/uL (0.0-0.1); BASOPHILS % (AUTO) 1.2 % (0.2-1.0); EOSINOPHILS # (AUTO) 0.1 x10^3/uL (0.0-0.2); EOSINOPHILS % (AUTO) 0.9 % (0.9-2.9); HEMATOCRIT 31.1 % (36.0-47.0); LYMPHOCYTES % (AUTO) 24.9 % (21.0-51.0); MEAN CORPUSCULAR HEMOGLOBIN 28.8 pg (27.0-34.0); MEAN CORPUSCULAR HGB CONC 35.3 g/dL (33.0-35.0); MEAN CORPUSCULAR VOLUME 81.5 fL (80.0-100.0); MEAN PLATELET VOLUME 8.3 fL (7.4-11.0); MONOCYTES # (AUTO) 0.6 x10^3/uL (0.3-0.8); MONOCYTES % (AUTO) 7.6 % (0.0-13.0); NEUTROPHILS # (AUTO) 5.2 x10^3/uL (2.2-4.8); NEUTROPHILS % (AUTO) 65.4 % (42.0-75.0); PLATELET COUNT 188 X10^3/uL (150.0-450.0); RED BLOOD COUNT 3.81 X10^6/uL (3.5-5.4); RED CELL DISTRIBUTION WIDTH 13.6 % (11.6-16.5); WHITE BLOOD COUNT 7.9 X10^3/uL (3.6-10.0)
[2023-03-01] MEDS: NovoLIN R (or HumuLIN R) SUBCUT PRN ×4 (05:50→20:10)
[2023-03-01] MEDS: LIPITOR TAB 20 MG PO SCH (09:05)
[2023-03-01] MEDS: GLUCOPHAGE XR 24-HR PO SCH ×2 (09:05→20:07)
[2023-03-01] MEDS: NORVASC TAB 5 MG PO SCH (09:05)
[2023-03-01] MEDS: HEPARIN SODIUM IN D5W 25,000 UNITS/500 ML BAG IV PRN (11:58)
--- NOTE | 2023-03-01 18:09 | DR.OPNOTE ---
OP NOTE Pre-Op Diagnosis: critical ischemia right leg Post-Op Diagnosis: same Procedure Date Date Of Procedure: 02/26/23 Procedure: PROCEDURE : ON TABLE ARTERIOGRAM RIGHT LEG AND REMOVAL EKOS CATHETER AND LEFT FEMORAL DESTINATION SHEATH. NARRATIVE: This patient had presented with severe ischemia of the right leg with rest pain. Patient given IV sedation supervised by myself. On table arteriogram showed very small vessels with mild disease of the right superficial femoral artery, complete occlusion of the right peroneal and right posterior tibial arteries. There was disease of the proximal and distal right anterior tibial artery . The right anterior tibial artery had been opened yesterday with angioplasty and EKOS catheter infusion used overnight to see if additional vessels might open if clot was dissolved. The patient was returned to the operating suite and placed in the supine position. The left groin and entire right leg prepped and draped in sterile fashion. The EKOS catheter removed and a 0.035 inch Advantage glide wire placed . [place] catheter placed over the guide wire and arteriogram carried out through the destination sheath showing the right anterior tibial artery to be patent all the way to the ankle. However there is only small microvasculature coming off of the anterior tibial artery , perfusing the ankle and foot . No additional named vessels had opened up after overnight thrombolysis . The EKOS catheter was removed. The destination sheath was pulled back into the aorta and a 0.035 inch guide wire placed . The destination sheath exchanged for an Angioseal device used to close the puncture of the left femoral artery. Dressing applied to the left groin and the patient returned to the ICU in stable condition. Anesthesia Comment: MAC Findings: Right anterior tibial artery still patent after balloon angioplasty. No additional named arteries opened with EKOS thrombolysis. Type of Fluids Used:: Lactated Ringers Total Amount of Fluid Infused:: 100 cc EBL: < 20 cc Complications:: none Needle/Sponge Count:: correct. Disposition/Condition: Pt. tolerated procedure without difficulty. Extubated in the OR and taken to PACU in stable condition.
--- NOTE | 2023-03-01 18:25 | NOTE.SOAP ---
Soap Note Note for Day of Date of Exam: 03/01/23 Subjective Data Subjective Data: Still c/o of pain right foot, but improved. Left foot cool but she is not c/o pain left foot. Objective Data Temperature: 98.6 F Pulse Rate: 85 Respiratory Rate: 19 Blood Pressure: 164/71 O2 Sat by Pulse Oximetry: 100 Objective Data: Left foot cool and I can hear no doppler signal . Right foot warm except for the demarcated area of the right great and second toe with significant ischemia and dark discoloration. Assessment Assessment: Bilateral LE severe critical ischemia with only one vessel runoff , but no good runoff into the feet consistent with " desert feet " now worse on the right. Plan Plan: At this point I believe I have done all that I can do . Will discuss with Dr. Sullivan of podiatry who referred the patient to me. I have put a call into Vascular surgery in [place] and am waiting on him to call me back and discuss the case.
[2023-03-01] MEDS: AMARYL TAB 4 MG PO SCH (20:07)
[2023-03-01] MEDS: ELAVIL PO SCH (20:07)
[2023-03-01] MEDS: SNACK - Diabetic Appropriate PO SCH (20:08)
[2023-03-02] MEDS: DILAUDID INJ IVP PRN ×5 (00:05→15:01)
[2023-03-02] MEDS: LR 1,000 ML IV 1,000 ML IV SCH ×2 (01:27→15:56)
[2023-03-02] MEDS: NovoLIN R (or HumuLIN R) SUBCUT PRN ×2 (05:49→12:13)
[2023-03-02] MEDS ORDERED: HEPARIN SODIUM IN D5W 25,000 UNITS/500 ML BAG ONE (06:22)
--- NOTE | 2023-03-02 08:03 | NOTE.SOAP ---
Soap Note Note for Day of Date of Exam: 03/02/23 Subjective Data Subjective Data: Patient is a 53 year old female with a longstanding history of severe PAD. She was experience bilateral foot pain and was seen in the podiatry office and due to ischemia, patient was referred to the vascular surgeon. The patient underwent vascular intervention with Dr. Chairez to her right foot , left foot underwent intervention a few weeks ago when she was referrred. Patient denies any constitutional symptoms at this time Objective Data Objective Data: Early mottled changed noted to the right digits 1-3 that is demarcated to the midfoot. Two 0.5x0.5 necrotic ulcers noted to the tuft of the left hallux. Palpable and dopplerable dorsalis pedis pulse noted to the right but not to the left foot. No pain noted on palpation. No fluctuance, crepitus, open wounds noted to the right. Right foot is warm to warm from proximal to distal. Left foot is warm to cold from proximal to distal. Assessment Assessment: Gangrene, Dry, Right foot PAD Plan Plan: Discussed with patient with assistance of a county records management officer on the line that due to mottled effect developing to the right foot we would recommend a transmetatarsal amputation. After discussing the case with Dr. Chairez, patient is at risk of more proximal amputations to bilateral extremities. Patient explained that she does not want an amputation at this moment and would like a second opinion. Explained to patient that condition is guarded if she gets discharged We explained that we can try to do a TMA but even so, there are always risks that she will not heal. Despite explaining all the risks of her condition, patient requests to be discharged in order to get a second opinion in [place] as she does not want an amputation at all at this time. We recommend that patient be discharged on oral antibiotics as she is at high risk of developing wet gangrene
[2023-03-02] MEDS: GLUCOPHAGE XR 24-HR PO SCH (09:18)
[2023-03-02] MEDS: COLACE CAP 100 MG PO SCH (09:18)
[2023-03-02] MEDS: MILK OF MAGNESIA PO SCH (09:18)
[2023-03-02] MEDS: LIPITOR TAB 20 MG PO SCH (09:18)
[2023-03-02] MEDS: NORVASC TAB 5 MG PO SCH (09:19)
[2023-03-02 15:06] VITALS: BP 152/65
--- NOTE | 2023-03-02 16:35 | W.DIS.FURT ---
Summary of Discharge Discharge Summary of Date Date of Exam: 03/02/23 Admission Date Date of Admission: 02/25/23 Admission Diagnosis Hospital Course: 53 year old female with history of significant diabetes and hypertension who was seen originally by me in Late January with an ischemic left foot with rubor and rest pain. At that time on table arteriogram showed patent proximal vessels. However, below the knee the only runoff was a diseased left anterior tibial artery.. 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 She underwent angioplasty of the right anterior tibial artery with relief of her pain and resolution of the left foot rubor . She was discharged home on Xarelto and aspirin but could not afford te Xarelto and was kept on asprin alone . She was seen in the office and her pain was much improved but her left foot remained cool. The rubor was resolved. She had a monophasic doppler signal of the left anterior tibial artery. . She presented urgently on February 25 to the emergency room in [place], [place] with severe pain of the right leg and foot . CT angiogram and dopplers were consistent with occluded vessels below the knee. She was admitted by myself and started on Heparin drip. She was taken that day to the operating room and arteriogram showed almost identical findings of the left leg with a completely occluded right peroneal artery and right posterior tibial artery with a diseased anterior tibial artery which ended in the ankle. There was significant microvascularture of the foot but no other named vessels lit up in the foot. In addition to angioplasty of the anterior tibial artery she was maintained on thrombolysis with an EKOS catheter overnight and repeat arteriogram the next day showed no improvement of the flow to the right foot. The right anterior tibial artery was small and intact . All of her vessesl are small. 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 The pain in the right foot is improved and there is a biphasic Doppler signal of the anterior tibial tibial artery. That foot is warm with dark discoloration ,possible early gangrene, of the right great toe and second toe. The left foot has monophasic Doppler signal only and is cool. She moves her toes of both feet. At this point I do not think there is anything more I can do to make this better. She was seen in consultation by our Podiatry colleagues who had actually referred her to me her originally and they felt that she would require a right transmetatarsal amputation with high risk of below knee amputations in the future . Before p roceeding the patient said that she would like to be transferred to [place], [place] for a second opinion. I have contacted the vascular service at [facility] in [place], Dr. Enamorado. He has accepted her and she will be transferred there She will be admitted to the hospitalist service , Dr De La Fuente ,who I have spoken to on the phone and they will evaluate her going forward. Vital Signs: Vital Signs (72 hours) 02/27/23 18:57 03/01/23 18:15 02/28/23 22:48 Temperature 99.4 F 98.6 F 98.7 F Pulse Rate 102 H 85 72 Respiratory Rate 18 19 12 Blood Pressure 156/72 164/71 163/71 O2 Sat by Pulse Oximetry 98 100 99 Oxygen Delivery Method Oxygen Flow Rate FIO2% 02/27/23 16:15 02/27/23 16:30 02/27/23 16:45 Temperature Pulse Rate 94 H 99 H 97 H Respiratory Rate 17 14 13 Blood Pressure O2 Sat by Pulse Oximetry 95 96 96 Oxygen Delivery Method Oxygen Flow Rate FIO2% 02/27/23 17:00 02/27/23 17:09 02/27/23 17:09 Temperature Pulse Rate 99 H 97 H Respiratory Rate 10 L 14 Blood Pressure 166/72 166/72 O2 Sat by Pulse Oximetry 96 96 Oxygen Delivery Method Oxygen Flow Rate FIO2% 02/27/23 17:15 02/27/23 17:30 02/27/23 17:45 Temperature Pulse Rate 97 H 105 H 102 H Respiratory Rate 12 24 17 Blood Pressure O2 Sat by Pulse Oximetry 96 97 Oxygen Delivery Method Oxygen Flow Rate FIO2% 02/27/23 17:59 02/27/23 18:00 02/27/23 19:16 Temperature Pulse Rate 102 H Respiratory Rate 18 17 Blood Pressure 156/72 O2 Sat by Pulse Oximetry 98 Oxygen Delivery Method Oxygen Flow Rate FIO2% 02/27/23 19:00 02/27/23 19:46 02/27/23 19:00 Temperature Pulse Rate 99 H Respiratory Rate 17 15 Blood Pressure 127/58 O2 Sat by Pulse Oximetry 100 Oxygen Delivery Method Nasal Cannula Room Air Oxygen Flow Rate 2 FIO2% 02/27/23 20:00 02/27/23 21:00 02/27/23 22:00 Temperature 98.2 F Pulse Rate 88 93 H 87 Respiratory Rate 12 16 16 Blood Pressure 142/65 159/75 170/77 O2 Sat by Pulse Oximetry 92 L 95 100 Oxygen Delivery Method Nasal Cannula Nasal Cannula Nasal Cannula Oxygen Flow Rate 2 2 2 FIO2% 02/27/23 23:00 02/28/23 00:00 02/27/23 20:50 Temperature 99.5 F Pulse Rate 71 82 Respiratory Rate 11 L 12 Blood Pressure 158/68 163/72 O2 Sat by Pulse Oximetry 100 100 Oxygen Delivery Method Nasal Cannula Nasal Cannula Nasal Cannula Oxygen Flow Rate 2 2 2 FIO2% 28 02/28/23 05:57 02/28/23 02:05 02/28/23 02:35 Temperature Pulse Rate Respiratory Rate 15 12 12 Blood Pressure O2 Sat by Pulse Oximetry Oxygen Delivery Method Oxygen Flow Rate FIO2% 02/28/23 01:00 02/28/23 02:00 02/28/23 03:00 Temperature Pulse Rate 87 84 85 Respiratory Rate 9 L 15 10 L Blood Pressure 162/74 162/72 178/79 O2 Sat by Pulse Oximetry 100 100 100 Oxygen Delivery Method Nasal Cannula Nasal Cannula Nasal Cannula Oxygen Flow Rate 2 2 2 FIO2% 02/28/23 04:00 02/28/23 05:00 02/28/23 06:00 Temperature 98.5 F Pulse Rate 82 87 85 Respiratory Rate 12 14 12 Blood Pressure 178/83 171/82 176/72 O2 Sat by Pulse Oximetry 100 100 100 Oxygen Delivery Method Nasal Cannula Nasal Cannula Nasal Cannula Oxygen Flow Rate 2 2 2 FIO2% 02/28/23 06:27 02/28/23 07:00 02/28/23 12:29 Temperature Pulse Rate 74 Respiratory Rate 12 16 18 Blood Pressure 170/72 O2 Sat by Pulse Oximetry 100 Oxygen Delivery Method Nasal Cannula Oxygen Flow Rate 2 FIO2% 02/28/23 16:35 02/28/23 09:34 02/28/23 07:00 Temperature Pulse Rate Respiratory Rate 16 18 Blood Pressure O2 Sat by Pulse Oximetry Oxygen Delivery Method Nasal Cannula Oxygen Flow Rate 2 FIO2% 02/28/23 08:00 02/28/23 09:00 02/28/23 10:00 Temperature 9.4 F L Pulse Rate 96 H 87 85 Respiratory Rate 18 18 18 Blood Pressure 154/65 173/79 174/72 O2 Sat by Pulse Oximetry 97 100 100 Oxygen Delivery Method Nasal Cannula Nasal Cannula Nasal Cannula Oxygen Flow Rate 2 2 2 FIO2% 02/28/23 10:04 02/28/23 11:00 02/28/23 12:00 Temperature 98.5 F Pulse Rate 77 84 Respiratory Rate 18 16 16 Blood Pressure 186/79 174/79 O2 Sat by Pulse Oximetry 100 100 Oxygen Delivery Method Nasal Cannula Nasal Cannula Oxygen Flow Rate 2 2 FIO2% 02/28/23 13:00 02/28/23 12:59 02/28/23 14:00 Temperature Pulse Rate 81 81 Respiratory Rate 16 18 16 Blood Pressure 134/61 166/79 O2 Sat by Pulse Oximetry 99 100 Oxygen Delivery Method Nasal Cannula Nasal Cannula Oxygen Flow Rate 2 2 FIO2% 02/28/23 15:00 02/28/23 16:00 02/28/23 17:00 Temperature Pulse Rate 91 H 75 74 Respiratory Rate 16 16 16 Blood Pressure 179/91 171/79 149/65 O2 Sat by Pulse Oximetry 100 100 100 Oxygen Delivery Method Nasal Cannula Nasal Cannula Nasal Cannula Oxygen Flow Rate 2 2 2 FIO2% 02/28/23 18:00 02/28/23 19:00 02/28/23 17:05 Temperature Pulse Rate 89 75 Respiratory Rate 16 16 18 Blood Pressure 151/71 154/79 O2 Sat by Pulse Oximetry 100 100 Oxygen Delivery Method Nasal Cannula Nasal Cannula Oxygen Flow Rate 2 2 FIO2% 02/28/23 19:43 02/28/23 21:51 03/01/23 01:21 Temperature Pulse Rate Respiratory Rate 18 14 12 Blood Pressure O2 Sat by Pulse Oximetry Oxygen Delivery Method Oxygen Flow Rate FIO2% 03/01/23 03:11 03/01/23 04:43 03/01/23 05:48 Temperature Pulse Rate Respiratory Rate 14 13 14 Blood Pressure O2 Sat by Pulse Oximetry Oxygen Delivery Method Oxygen Flow Rate FIO2% 02/28/23 20:00 02/28/23 20:13 02/28/23 21:00 Temperature 98.7 F Pulse Rate 84 84 Respiratory Rate 12 14 12 Blood Pressure 147/70 170/80 O2 Sat by Pulse Oximetry 99 99 Oxygen Delivery Method Nasal Cannula Nasal Cannula Oxygen Flow Rate 2 2 FIO2% 02/28/23 22:00 02/28/23 19:00 02/28/23 21:35 Temperature Pulse Rate 72 Respiratory Rate 12 Blood Pressure 163/71 O2 Sat by Pulse Oximetry 99 Oxygen Delivery Method Nasal Cannula Nasal Cannula Nasal Cannula Oxygen Flow Rate 2 2 2 FIO2% 28 02/28/23 21:35 02/28/23 23:00 03/01/23 00:00 Temperature 98.4 F Pulse Rate 77 79 89 Respiratory Rate 12 12 Blood Pressure 170/75 165/74 O2 Sat by Pulse Oximetry 100 99 99 Oxygen Delivery Method Nasal Cannula Nasal Cannula Oxygen Flow Rate 2 2 FIO2% 02/28/23 22:21 03/01/23 01:00 03/01/23 02:00 Temperature Pulse Rate 93 H 87 Respiratory Rate 12 11 L 18 Blood Pressure 147/65 172/74 O2 Sat by Pulse Oximetry 99 99 Oxygen Delivery Method Nasal Cannula Nasal Cannula Oxygen Flow Rate 2 2 FIO2% 03/01/23 01:51 03/01/23 03:00 03/01/23 04:00 Temperature 98.3 F Pulse Rate 96 H 90 Respiratory Rate 14 12 12 Blood Pressure 174/82 169/72 O2 Sat by Pulse Oximetry 99 99 Oxygen Delivery Method Nasal Cannula Nasal Cannula Oxygen Flow Rate 2 2 FIO2% 03/01/23 05:00 03/01/23 06:00 03/01/23 06:18 Temperature Pulse Rate 91 H 96 H Respiratory Rate 15 11 L 12 Blood Pressure 166/77 174/81 O2 Sat by Pulse Oximetry 100 100 Oxygen Delivery Method Nasal Cannula Nasal Cannula Oxygen Flow Rate 2 2 FIO2% 03/01/23 10:42 02/28/23 23:45 03/01/23 00:00 Temperature Pulse Rate 90 Respiratory Rate 19 10 L Blood Pressure 165/74 O2 Sat by Pulse Oximetry 100 Oxygen Delivery Method Oxygen Flow Rate FIO2% 03/01/23 00:00 03/01/23 00:15 03/01/23 00:30 Temperature Pulse Rate 94 H 88 89 Respiratory Rate 12 7 L 7 L Blood Pressure O2 Sat by Pulse Oximetry 96 100 100 Oxygen Delivery Method Oxygen Flow Rate FIO2% 03/01/23 00:45 03/01/23 01:00 03/01/23 01:00 Temperature Pulse Rate 87 95 H Respiratory Rate 12 14 Blood Pressure 147/65 O2 Sat by Pulse Oximetry 100 100 Oxygen Delivery Method Oxygen Flow Rate FIO2% 03/01/23 01:15 03/01/23 01:30 03/01/23 01:45 Temperature Pulse Rate 93 H 86 90 Respiratory Rate 17 7 L 8 L Blood Pressure O2 Sat by Pulse Oximetry 99 100 100 Oxygen Delivery Method Oxygen Flow Rate FIO2% 03/01/23 02:00 03/01/23 02:00 03/01/23 02:15 Temperature Pulse Rate 90 87 Respiratory Rate 11 L 13 Blood Pressure 180/76 O2 Sat by Pulse Oximetry 99 99 Oxygen Delivery Method Oxygen Flow Rate FIO2% 03/01/23 02:17 03/01/23 02:17 03/01/23 02:30 Temperature Pulse Rate 94 H 92 H Respiratory Rate 12 12 Blood Pressure 172/74 O2 Sat by Pulse Oximetry 100 100 Oxygen Delivery Method Oxygen Flow Rate FIO2% 03/01/23 02:45 03/01/23 03:00 03/01/23 03:00 Temperature Pulse Rate 93 H 96 H Respiratory Rate 11 L 11 L Blood Pressure 174/82 O2 Sat by Pulse Oximetry 100 100 Oxygen Delivery Method Oxygen Flow Rate FIO2% 03/01/23 03:15 03/01/23 03:30 03/01/23 03:45 Temperature Pulse Rate 96 H 91 H 93 H Respiratory Rate 17 13 12 Blood Pressure O2 Sat by Pulse Oximetry 100 100 99 Oxygen Delivery Method Oxygen Flow Rate FIO2% 03/01/23 04:00 03/01/23 04:00 03/01/23 04:15 Temperature Pulse Rate 95 H 92 H Respiratory Rate 9 L 13 Blood Pressure 168/72 O2 Sat by Pulse Oximetry 100 100 Oxygen Delivery Method Oxygen Flow Rate FIO2% 03/01/23 04:30 03/01/23 04:45 03/01/23 05:00 Temperature Pulse Rate 91 H 88 90 Respiratory Rate 10 L 12 10 L Blood Pressure O2 Sat by Pulse Oximetry 100 99 100 Oxygen Delivery Method Oxygen Flow Rate FIO2% 03/01/23 05:00 03/01/23 05:15 03/01/23 05:30 Temperature Pulse Rate 91 H 94 H Respiratory Rate 13 15 Blood Pressure 166/77 O2 Sat by Pulse Oximetry 100 100 Oxygen Delivery Method Oxygen Flow Rate FIO2% 03/01/23 05:46 03/01/23 06:00 03/01/23 06:00 Temperature Pulse Rate 106 H 97 H Respiratory Rate 13 Blood Pressure 174/81 O2 Sat by Pulse Oximetry 98 100 Oxygen Delivery Method Oxygen Flow Rate FIO2% 03/01/23 06:15 03/01/23 06:30 03/01/23 06:45 Temperature Pulse Rate 95 H 91 H 80 Respiratory Rate 9 L 10 L 9 L Blood Pressure O2 Sat by Pulse Oximetry 100 100 100 Oxygen Delivery Method Oxygen Flow Rate FIO2% 03/01/23 07:00 03/01/23 07:00 03/01/23 07:15 Temperature Pulse Rate 90 79 Respiratory Rate 19 Blood Pressure 171/77 O2 Sat by Pulse Oximetry 99 100 Oxygen Delivery Method Nasal Cannula Oxygen Flow Rate 2 FIO2% 03/01/23 07:30 03/01/23 07:45 03/01/23 08:00 Temperature 97.8 F Pulse Rate 88 78 Respiratory Rate 19 14 Blood Pressure 152/68 O2 Sat by Pulse Oximetry 100 100 Oxygen Delivery Method Nasal Cannula Oxygen Flow Rate 2 FIO2% 03/01/23 08:00 03/01/23 08:15 03/01/23 08:30 Temperature Pulse Rate 95 H 88 93 H Respiratory Rate 19 19 Blood Pressure O2 Sat by Pulse Oximetry 100 100 100 Oxygen Delivery Method Oxygen Flow Rate FIO2% 03/01/23 08:45 03/01/23 09:00 03/01/23 09:00 Temperature Pulse Rate 94 H 94 H Respiratory Rate 17 17 Blood Pressure 146/65 O2 Sat by Pulse Oximetry 100 100 Oxygen Delivery Method Nasal Cannula Oxygen Flow Rate 2 FIO2% 03/01/23 07:00 03/01/23 09:24 03/01/23 09:30 Temperature Pulse Rate 106 H 102 H Respiratory Rate 23 Blood Pressure O2 Sat by Pulse Oximetry Oxygen Delivery Method Nasal Cannula Oxygen Flow Rate 2 FIO2% 03/01/23 09:45 03/01/23 10:00 03/01/23 10:00 Temperature Pulse Rate 97 H 97 H Respiratory Rate 19 Blood Pressure 146/69 O2 Sat by Pulse Oximetry Oxygen Delivery Method Nasal Cannula Oxygen Flow Rate 2 FIO2% 03/01/23 10:15 03/01/23 10:30 03/01/23 10:45 Temperature Pulse Rate 99 H 101 H 95 H Respiratory Rate Blood Pressure O2 Sat by Pulse Oximetry 96 Oxygen Delivery Method Oxygen Flow Rate FIO2% 03/01/23 11:00 03/01/23 11:00 03/01/23 11:15 Temperature Pulse Rate 95 H 91 H Respiratory Rate 12 Blood Pressure 156/75 O2 Sat by Pulse Oximetry 99 99 Oxygen Delivery Method Oxygen Flow Rate FIO2% 03/01/23 11:30 03/01/23 11:45 03/01/23 12:00 Temperature Pulse Rate 87 93 H 90 Respiratory Rate 14 Blood Pressure O2 Sat by Pulse Oximetry 98 100 100 Oxygen Delivery Method Nasal Cannula Oxygen Flow Rate 2 FIO2% 03/01/23 12:00 03/01/23 12:15 03/01/23 12:30 Temperature 97.8 F Pulse Rate 87 76 Respiratory Rate 14 Blood Pressure 159/75 O2 Sat by Pulse Oximetry 100 100 Oxygen Delivery Method Oxygen Flow Rate FIO2% 03/01/23 12:45 03/01/23 13:00 03/01/23 13:00 Temperature Pulse Rate 93 H 100 H Respiratory Rate 19 Blood Pressure 150/82 O2 Sat by Pulse Oximetry 100 100 Oxygen Delivery Method Nasal Cannula Oxygen Flow Rate 2 FIO2% 03/01/23 11:12 03/01/23 13:15 03/01/23 13:30 Temperature Pulse Rate 93 H 100 H Respiratory Rate 20 22 Blood Pressure O2 Sat by Pulse Oximetry 100 100 Oxygen Delivery Method Oxygen Flow Rate FIO2% 03/01/23 13:31 03/01/23 13:31 03/01/23 13:45 Temperature Pulse Rate 97 H 79 Respiratory Rate 19 12 Blood Pressure 160/83 O2 Sat by Pulse Oximetry 100 100 Oxygen Delivery Method Oxygen Flow Rate FIO2% 03/01/23 14:00 03/01/23 14:00 03/01/23 14:15 Temperature Pulse Rate 76 77 Respiratory Rate 13 14 Blood Pressure 140/63 O2 Sat by Pulse Oximetry 100 100 Oxygen Delivery Method Oxygen Flow Rate FIO2% 03/01/23 14:30 03/01/23 14:53 03/01/23 15:00 Temperature Pulse Rate 81 98 H 100 H Respiratory Rate 18 21 Blood Pressure O2 Sat by Pulse Oximetry 100 100 Oxygen Delivery Method Oxygen Flow Rate FIO2% 03/01/23 15:01 03/01/23 15:01 03/01/23 15:15 Temperature Pulse Rate 92 H 76 Respiratory Rate 15 12 Blood Pressure 166/87 O2 Sat by Pulse Oximetry 100 100 Oxygen Delivery Method Oxygen Flow Rate FIO2% 03/01/23 15:30 03/01/23 15:45 03/01/23 16:00 Temperature Pulse Rate 90 90 Respiratory Rate 16 12 Blood Pressure 170/86 O2 Sat by Pulse Oximetry 100 100 Oxygen Delivery Method Nasal Cannula Oxygen Flow Rate 2 FIO2% 03/01/23 16:00 03/01/23 16:15 03/01/23 16:30 Temperature 98.6 F Pulse Rate 85 83 102 H Respiratory Rate 19 13 Blood Pressure O2 Sat by Pulse Oximetry 100 100 100 Oxygen Delivery Method Oxygen Flow Rate FIO2% 03/01/23 16:45 03/01/23 17:00 03/01/23 17:00 Temperature Pulse Rate 85 83 Respiratory Rate 12 Blood Pressure 164/71 O2 Sat by Pulse Oximetry 100 99 Oxygen Delivery Method Oxygen Flow Rate FIO2% 03/01/23 16:40 03/01/23 17:10 03/01/23 17:15 Temperature Pulse Rate 89 Respiratory Rate 17 12 Blood Pressure O2 Sat by Pulse Oximetry 100 Oxygen Delivery Method Oxygen Flow Rate FIO2% 03/01/23 17:30 03/01/23 17:45 03/01/23 18:00 Temperature Pulse Rate 75 87 92 H Respiratory Rate 18 18 Blood Pressure O2 Sat by Pulse Oximetry 100 100 100 Oxygen Delivery Method Nasal Cannula Oxygen Flow Rate 2 FIO2% 03/01/23 18:01 03/01/23 18:01 03/01/23 19:00 Temperature Pulse Rate 89 Respiratory Rate 21 Blood Pressure 193/86 O2 Sat by Pulse Oximetry 100 Oxygen Delivery Method Nasal Cannula Oxygen Flow Rate 2 FIO2% 03/01/23 19:00 03/01/23 21:35 03/01/23 20:00 Temperature 97.7 F Pulse Rate 93 H 92 H Respiratory Rate 26 H 18 21 Blood Pressure 156/70 174/71 O2 Sat by Pulse Oximetry 100 93 L Oxygen Delivery Method Nasal Cannula Nasal Cannula Oxygen Flow Rate 2 2 FIO2% 03/01/23 21:00 03/01/23 21:18 03/01/23 21:18 Temperature Pulse Rate 96 H 91 H Respiratory Rate 20 Blood Pressure 163/71 O2 Sat by Pulse Oximetry 100 100 Oxygen Delivery Method Nasal Cannula Nasal Cannula Oxygen Flow Rate 2 2 FIO2% 28 03/01/23 22:00 03/01/23 22:05 03/01/23 23:00 Temperature Pulse Rate 76 75 Respiratory Rate 19 18 11 L Blood Pressure 155/70 178/76 O2 Sat by Pulse Oximetry 100 100 Oxygen Delivery Method Nasal Cannula Nasal Cannula Oxygen Flow Rate 2 2 FIO2% 03/02/23 00:05 03/02/23 00:00 03/02/23 00:35 Temperature 97.9 F Pulse Rate 74 Respiratory Rate 19 12 13 Blood Pressure 153/92 O2 Sat by Pulse Oximetry 100 Oxygen Delivery Method Nasal Cannula Oxygen Flow Rate 2 FIO2% 03/02/23 01:00 03/02/23 02:00 03/02/23 03:00 Temperature Pulse Rate 87 82 86 Respiratory Rate 21 12 12 Blood Pressure 173/79 176/73 174/75 O2 Sat by Pulse Oximetry 100 100 100 Oxygen Delivery Method Nasal Cannula Nasal Cannula Room Air Oxygen Flow Rate 2 2 FIO2% 03/02/23 04:00 03/02/23 05:00 03/02/23 05:55 Temperature 98.2 F Pulse Rate 100 H 90 Respiratory Rate 14 12 14 Blood Pressure 172/74 158/70 O2 Sat by Pulse Oximetry 100 2 L Oxygen Delivery Method Nasal Cannula Nasal Cannula Oxygen Flow Rate 2 100 FIO2% 03/02/23 06:00 03/02/23 06:25 03/02/23 07:00 Temperature Pulse Rate 90 Respiratory Rate 19 12 Blood Pressure 156/68 O2 Sat by Pulse Oximetry 98 Oxygen Delivery Method Nasal Cannula Nasal Cannula Oxygen Flow Rate 2 2 FIO2% 03/01/23 23:00 03/01/23 23:00 03/01/23 23:15 Temperature Pulse Rate 75 74 Respiratory Rate Blood Pressure 178/76 O2 Sat by Pulse Oximetry 100 100 Oxygen Delivery Method Oxygen Flow Rate FIO2% 03/01/23 23:30 03/01/23 23:45 03/02/23 00:00 Temperature Pulse Rate 79 87 Respiratory Rate 12 Blood Pressure 153/92 O2 Sat by Pulse Oximetry 100 100 Oxygen Delivery Method Oxygen Flow Rate FIO2% 03/02/23 00:00 03/02/23 00:15 03/02/23 00:30 Temperature Pulse Rate 83 73 83 Respiratory Rate 13 17 Blood Pressure O2 Sat by Pulse Oximetry 100 100 100 Oxygen Delivery Method Oxygen Flow Rate FIO2% 03/02/23 00:45 03/02/23 01:00 03/02/23 01:00 Temperature Pulse Rate 85 86 Respiratory Rate 15 14 Blood Pressure 183/79 O2 Sat by Pulse Oximetry 100 100 Oxygen Delivery Method Oxygen Flow Rate FIO2% 03/02/23 01:15 03/02/23 01:30 03/02/23 01:45 Temperature Pulse Rate 74 72 75 Respiratory Rate 13 Blood Pressure O2 Sat by Pulse Oximetry 100 100 100 Oxygen Delivery Method Oxygen Flow Rate FIO2% 03/02/23 02:00 03/02/23 02:01 03/02/23 02:01 Temperature Pulse Rate 75 83 Respiratory Rate 11 L 8 L Blood Pressure 176/73 O2 Sat by Pulse Oximetry 100 100 Oxygen Delivery Method Oxygen Flow Rate FIO2% 03/02/23 02:15 03/02/23 02:30 03/02/23 02:45 Temperature Pulse Rate 84 77 82 Respiratory Rate Blood Pressure O2 Sat by Pulse Oximetry 100 100 100 Oxygen Delivery Method Oxygen Flow Rate FIO2% 03/02/23 03:00 03/02/23 03:00 03/02/23 03:15 Temperature Pulse Rate 85 78 Respiratory Rate 12 Blood Pressure 174/75 O2 Sat by Pulse Oximetry 100 100 Oxygen Delivery Method Oxygen Flow Rate FIO2% 03/02/23 03:30 03/02/23 03:45 03/02/23 04:00 Temperature Pulse Rate 91 H 93 H 97 H Respiratory Rate 13 Blood Pressure O2 Sat by Pulse Oximetry 100 100 100 Oxygen Delivery Method Oxygen Flow Rate FIO2% 03/02/23 04:00 03/02/23 04:15 03/02/23 04:30 Temperature Pulse Rate 56 L 51 L Respiratory Rate 14 14 Blood Pressure 172/74 O2 Sat by Pulse Oximetry 100 100 Oxygen Delivery Method Oxygen Flow Rate FIO2% 03/02/23 04:45 03/02/23 05:00 03/02/23 05:01 Temperature Pulse Rate 107 H 51 L 50 L Respiratory Rate 16 15 16 Blood Pressure O2 Sat by Pulse Oximetry 100 100 100 Oxygen Delivery Method Oxygen Flow Rate FIO2% 03/02/23 05:01 03/02/23 05:15 03/02/23 05:30 Temperature Pulse Rate 98 H 100 H Respiratory Rate 25 H Blood Pressure 158/70 O2 Sat by Pulse Oximetry 100 97 Oxygen Delivery Method Oxygen Flow Rate FIO2% 03/02/23 05:45 03/02/23 06:00 03/02/23 06:00 Temperature Pulse Rate 90 89 Respiratory Rate 8 L 8 L Blood Pressure 141/66 O2 Sat by Pulse Oximetry 100 99 Oxygen Delivery Method Oxygen Flow Rate FIO2% 03/02/23 06:15 03/02/23 06:30 03/02/23 06:45 Temperature Pulse Rate 91 H 80 88 Respiratory Rate 15 10 L 13 Blood Pressure O2 Sat by Pulse Oximetry 100 100 100 Oxygen Delivery Method Oxygen Flow Rate FIO2% 03/02/23 07:00 03/02/23 07:00 03/02/23 07:15 Temperature Pulse Rate 88 101 H Respiratory Rate 18 Blood Pressure 152/70 O2 Sat by Pulse Oximetry 100 100 Oxygen Delivery Method Room Air Oxygen Flow Rate 2 FIO2% 03/02/23 07:30 03/02/23 07:45 03/02/23 08:00 Temperature 97.2 F L Pulse Rate 104 H 109 H Respiratory Rate 17 Blood Pressure 156/72 O2 Sat by Pulse Oximetry 100 100 Oxygen Delivery Method Room Air Oxygen Flow Rate 2 FIO2% 03/02/23 08:00 03/02/23 08:15 03/02/23 09:27 Temperature Pulse Rate 104 H 104 H Respiratory Rate 16 17 18 Blood Pressure O2 Sat by Pulse Oximetry 100 100 Oxygen Delivery Method Oxygen Flow Rate FIO2% 03/02/23 12:30 03/02/23 15:01 03/02/23 08:30 Temperature Pulse Rate 101 H Respiratory Rate 12 13 19 Blood Pressure O2 Sat by Pulse Oximetry 100 Oxygen Delivery Method Oxygen Flow Rate FIO2% 03/02/23 08:45 03/02/23 09:00 03/02/23 09:01 Temperature Pulse Rate 104 H 101 H 99 H Respiratory Rate 22 16 18 Blood Pressure O2 Sat by Pulse Oximetry 99 97 96 Oxygen Delivery Method Oxygen Flow Rate FIO2% 03/02/23 09:01 03/02/23 09:15 03/02/23 09:30 Temperature Pulse Rate 106 H 97 H Respiratory Rate 39 H 20 Blood Pressure 141/63 O2 Sat by Pulse Oximetry 99 97 Oxygen Delivery Method Oxygen Flow Rate FIO2% 03/02/23 09:45 03/02/23 10:00 03/02/23 10:00 Temperature Pulse Rate 90 86 Respiratory Rate Blood Pressure 153/70 O2 Sat by Pulse Oximetry 96 95 Oxygen Delivery Method Room Air Room Air Oxygen Flow Rate FIO2% 03/02/23 10:15 03/02/23 10:30 03/02/23 09:57 Temperature Pulse Rate 82 85 Respiratory Rate 13 14 Blood Pressure O2 Sat by Pulse Oximetry 97 95 Oxygen Delivery Method Oxygen Flow Rate FIO2% 03/02/23 09:00 03/02/23 10:45 03/02/23 11:00 Temperature Pulse Rate 79 Respiratory Rate 13 Blood Pressure 174/72 O2 Sat by Pulse Oximetry 97 Oxygen Delivery Method Room Air Oxygen Flow Rate 2 FIO2% 28 03/02/23 11:00 03/02/23 11:15 03/02/23 11:30 Temperature Pulse Rate 85 92 H 96 H Respiratory Rate 14 16 Blood Pressure O2 Sat by Pulse Oximetry 96 98 99 Oxygen Delivery Method Room Air Oxygen Flow Rate FIO2% 03/02/23 11:45 03/02/23 12:00 03/02/23 12:01 Temperature 97.9 F Pulse Rate 92 H 96 H Respiratory Rate 12 16 Blood Pressure 142/64 O2 Sat by Pulse Oximetry 96 99 Oxygen Delivery Method Room Air Oxygen Flow Rate FIO2% 03/02/23 12:01 03/02/23 12:15 03/02/23 12:30 Temperature Pulse Rate 93 H 98 H 93 H Respiratory Rate 22 23 12 Blood Pressure O2 Sat by Pulse Oximetry 97 98 97 Oxygen Delivery Method Oxygen Flow Rate FIO2% 03/02/23 12:45 03/02/23 13:00 03/02/23 13:00 Temperature Pulse Rate 89 76 Respiratory Rate Blood Pressure 123/58 O2 Sat by Pulse Oximetry 99 96 Oxygen Delivery Method Room Air Oxygen Flow Rate FIO2% 03/02/23 13:15 03/02/23 13:30 03/02/23 13:45 Temperature Pulse Rate 73 79 72 Respiratory Rate 17 14 Blood Pressure O2 Sat by Pulse Oximetry 96 99 98 Oxygen Delivery Method Oxygen Flow Rate FIO2% 03/02/23 14:00 03/02/23 14:00 03/02/23 14:15 Temperature Pulse Rate 75 76 Respiratory Rate Blood Pressure 124/58 O2 Sat by Pulse Oximetry 97 Oxygen Delivery Method Oxygen Flow Rate FIO2% 03/02/23 14:30 03/02/23 13:00 03/02/23 14:45 Temperature Pulse Rate 73 79 Respiratory Rate 14 14 Blood Pressure O2 Sat by Pulse Oximetry 97 97 Oxygen Delivery Method Nasal Cannula Oxygen Flow Rate FIO2% 03/02/23 15:00 03/02/23 15:00 03/02/23 15:31 Temperature Pulse Rate 80 Respiratory Rate 19 14 Blood Pressure 152/65 O2 Sat by Pulse Oximetry 98 Oxygen Delivery Method Oxygen Flow Rate FIO2% Labs: Laboratory Last Values WBC 7.9 X10^3/uL (3.6-10.0) 03/01/23 05:25 RBC 3.81 X10^6/uL (3.5-5.4) 03/01/23 05:25 Hgb 11.0 g/dL (12.0-16.0) L 03/01/23 05:25 Hct 31.1 % (36.0-47.0) L 03/01/23 05:25 MCV 81.5 fL (80.0-100.0) 03/01/23 05:25 MCH 28.8 pg (27.0-34.0) 03/01/23 05:25 MCHC 35.3 g/dL (33.0-35.0) H 03/01/23 05:25 RDW 13.6 % (11.6-16.5) 03/01/23 05:25 Plt Count 188 X10^3/uL (150.0-450.0) 03/01/23 05:25 MPV 8.3 fL (7.4-11.0) 03/01/23 05:25 Neut % (Auto) 65.4 % (42.0-75.0) 03/01/23 05:25 Lymph % (Auto) 24.9 % (21.0-51.0) 03/01/23 05:25 [place] % (Auto) 7.6 % (0.0-13.0) 03/01/23 05:25 Eos % (Auto) 0.9 % (0.9-2.9) 03/01/23 05:25 Baso % (Auto) 1.2 % (0.2-1.0) H 03/01/23 05:25 Neut # (Auto) 5.2 x10^3/uL (2.2-4.8) H 03/01/23 05:25 Lymph # (Auto) 2.0 X10^3/uL (1.3-2.9) 03/01/23 05:25 [place] # (Auto) 0.6 x10^3/uL (0.3-0.8) 03/01/23 05:25 Eos # (Auto) 0.1 x10^3/uL (0.0-0.2) 03/01/23 05:25 Baso # (Auto) 0.1 X10^3/uL (0.0-0.1) 03/01/23 05:25 Absolute Nucleated RBC 0.0 /100WBC 03/01/23 05:25 APTT 96.2 SECONDS (22.9-36.5) H 03/02/23 05:10 PTT Comment - 03/02/23 05:10 Fibrinogen 436 mg/dL (239-489) 02/27/23 06:50 POC Glucose (mg/dL) 213 mg/dL (65-99) H 03/02/23 12:04 Reason For Visit: RIGHT FOOT ISCHEMIA Discharge Date Discharge Date: 03/02/23 Discharge Diagnosis All Active Problems (Updated 02/25/23 @ 15:06 by Santo Hawley) Type 2 diabetes mellitus without complications (Acute) Essential (primary) hypertension (Acute) Atherosclerosis of [place] arteries of extremities with rest pain, right leg (Acute) Atherosclerosis of [place] arteries of extremities with rest pain, left leg (Acute) Plan of Treatment: Continue with present treatment and follow up plan. Pt is to keep follow up appointment as instructed and take medications as ordered. Discharge Medications Discharge Medications: No Known Allergies Allergy (Verified 02/25/23 11:21) CONTINUE taking the following medications atorvastatin 20 mg tablet 20 mg PO DAILY 02/25/23 [History] metformin 500 mg 24 hr tablet,extended release 500 mg PO BID 02/25/23 [History] Discharge Disposition Assessment: see hospital course Discharge Plan Discharge Plan Hospital Course: 53 year old female with history of significant diabetes and hypertension who was seen originally by me in Late January with an ischemic left foot with rubor and rest pain. At that time on table arteriogram showed patent proximal vessels. However, below the knee the only runoff was a diseased left anterior tibial artery.. 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 She underwent angioplasty of the right anterior tibial artery with relief of her pain and resolution of the left foot rubor . She was discharged home on Xarelto and aspirin but could not afford te Xarelto and was kept on asprin alone . She was seen in the office and her pain was much improved but her left foot remained cool. The rubor was resolved. She had a monophasic doppler signal of the left anterior tibial artery. . She presented urgently on February 25 to the emergency room in [place], [place] with severe pain of the right leg and foot . CT angiogram and dopplers were consistent with occluded vessels below the knee. She was admitted by myself and started on Heparin drip. She was taken that day to the operating room and arteriogram showed almost identical findings of the left leg with a completely occluded right peroneal artery and right posterior tibial artery with a diseased anterior tibial artery which ended in the ankle. There was significant microvascularture of the foot but no other named vessels lit up in the foot. In addition to angioplasty of the anterior tibial artery she was maintained on thrombolysis with an EKOS catheter overnight and repeat arteriogram the next da y showed no improvement of the flow to the right foot. The right anterior tibial artery was small and intact . All of her vessesl are small. 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 The pain in the right foot is improved and there is a biphasic Doppler signal of the anterior tibial tibial artery. That foot is warm with dark discoloration ,possible early gangrene, of the right great toe and second toe. The left foot has monophasic Doppler signal only and is cool. She moves her toes of both feet. At this point I do not think there is anything more I can do to make this better. She was seen in consultation by our Podiatry colleagues who had actually referred her to me her originally and they felt that she would require a right transmetatarsal amputation with high risk of below knee amputations in the future . Before proceeding the patient said that she would like to be transferred to [place], [place] for a second opinion. I have contacted the vascular se rvice at [facility] in [place], Dr. Enamorado. He has accepted her and she will be transferred there She will be admitted to the hospitalist service , Dr De La Fuente ,who I have spoken to on the phone and they will evaluate her going forward. Patient Disposition: 01 HOME, SELF-CARE Condition: Stable Health Concerns: Post Hospitalization: new medications and changes needed to prevent readmission or further decline. Pt educated and given instructions on all concerns. Care Plan Goals: Problem: Pain/Alteration in Comfort Goal: Improve/ Resolve Pain; Achieve Pain Tolerance Instructions: Take pain medications as prescribed. Contact your primary care provider if your pain is unrelieved or worsens. Follow up with primary care provider as directed. Plan of Treatment: Continue with present treatment and follow up plan. Pt is to keep follow up a ppointment as instructed and take medications as ordered. Assessment: see hospital course Prescription drug monitoring program results: PDMP was not reviewed Prescriptions: Continued atorvastatin 20 mg Tablet 20 mg PO DAILY metformin 500 mg Tablet,Er Ruthy.Retention 24 Hr 500 mg PO BID amlodipine 5 mg Tablet 5 mg PO HS amitriptyline-chlordiazepoxide 25-10 mg Tablet 10 tab PO HS glimepiride 4 mg Tablet 4 mg PO HS Follow ups/Referrals Follow ups/Referrals: MARCO ANTONIO PETERSON [Primary Care Provider] - (Follow up as needed ) Santo Hawley [STAFF PHYSICIAN] - 1 WEEK Instructions Instructions: Endovascular Therapy for Peripheral Vascular Disease, Care After Stand Alone Forms: Excuse From Work, Post Hospital Follow Up Care
[2023-03-02 16:55] VITALS: PULSE 81; RESP 12; TEMP 98.9; O2SAT 96
== END 2023-03-02 17:45 | disposition short-term general hospital (02) | DRG 254 ==
LOC: ICU 11:59
PROVIDERS: ADMIT Surgery; ATTEND Surgery